=== PATIENT | female | born 1945 | race African-American/Black ===

== ENCOUNTER 2016-05-17 08:32 | Day surgery (SDC) | payer BC, MEDICARE ==
--- NOTE | 2016-05-10 13:14 | HISTORY AND PHYSICAL E ---
History and Physical NAME: VALERIO AUSTIN : 1945 AGE: [age]Y ADMITTED: 05/17/2016 ROOM: HISTORY: The patient is 71 and presented with a chief complaint of constipation. MEDICATIONS: 1. Lorazepam. 2. Ferrous sulfate. SOCIAL HISTORY: The patient is . She smokes 5-6 cigarettes a day and drinks rarely. PAST SURGICAL HISTORY: Colonoscopy and EGD in 2004. She did have right hip replacement. REVIEW OF SYSTEMS: CARDIAC: Hypertension, high cholesterol. RESPIRATORY: Smoker. HEENT: Eyeglasses. ENDOCRINE: Negative. GASTROINTESTINAL: Colon screening. Reflux, constipation, anemia. MUSCULOSKELETAL: Arthritis. FAMILY HISTORY: Father had CA prostate. Mom had cardiac disease. PHYSICAL EXAMINATION: GENERAL: Pleasant, alert, oriented. VITAL SIGNS: Blood pressure 120/80, pulse 80, respirations 18, temp 98. HEENT: Normal. NECK: Supple. CARDIOVASCULAR: Normal. LUNGS: Clear. ABDOMEN: Soft. NEUROLOGIC: Negative. CONCLUSION: Colon screening. PLAN: Colonoscopy scheduled for 05/17/2016. Admit 05/17/2016 for outpatient screening colonoscopy. DICTATING PHYSICIAN: ALEAH BEACH M.D. [id number] PHY#: [id number] ID: [id number] JOB#: [id number] ACCT: [id number] cc:MARIBELL MANRIQUEZ M.D., MAHMOUD M.D. >
[~2016-05-17 08:32] MED LIST: EPINEPHRINE INJ 1 MG/10 ML DISP.SYRIN ONE; FENTANYL CITRATE INJ/PF 100 MCG/2 ML AMPUL ONE; FLUMAZENIL INJ 0.5 MG/5 ML VIAL IV ONE; GLUCAGON,HUMAN RECOMB 1 MG INJ ONE; GLYCOPYRROLATE INJ 0.4 MG/2 ML VIAL ONE; LIDOCAINE 2% JELLY 30 ML TUBE ONE; MIDAZOLAM 2 MG/2 ML INJ ONE; NALOXONE HCL INJ/PF 0.4 MG/1 ML SDV ONE; ONDANSETRON HCL INJ/PF 4 MG/2 ML SDV ONE; PROMETHAZINE HCL INJ 25 MG/1 ML VIAL ONE
[2016-05-17 10:56] LABS: ABSOLUTE LYMPHOCYTES (AUTO) 1.1 10^3/uL (0.5-4.7); ABSOLUTE MONOCYTES (AUTO) 0.6 10^3/uL (0.1-1.4); ABSOLUTE NEUT (AUTO) 4.5 10^3/uL (1.7-8.2); BASOPHILS % (AUTO) 0.5 % (0-2); EOSINOPHILS % (AUTO) 0.4 % (0-6); HEMATOCRIT 33.2 % (36.0-47.0); HEMOGLOBIN 10.8 g/dL (12.0-15.5); HGB HCT DIFFERENCE -0.8; LYMPHOCYTES % (AUTO) 17.1 % (13-45); MEAN CORPUSCULAR HEMOGLOBIN 29.7 pg (27.0-33.4); MEAN CORPUSCULAR HGB CONC 32.6 g/dL (32.0-36.0); MEAN CORPUSCULAR VOLUME 91 fl (80-97); MONOCYTES % (AUTO) 10.3 % (3-13); RED BLOOD COUNT 3.64 10^6/uL (3.72-5.28); RED CELL DISTRIBUTION WIDTH 18.7 % (11.5-14.0); SEGMENTED NEUTROPHILS % (AUTO) 71.7 % (42-78); WHITE BLOOD COUNT 6.2 10^3/uL (4.0-10.5)
[2016-05-17 11:08] LABS: ALANINE AMINOTRANSFERASE 32 U/L (9-52); ALBUMIN 3.4 g/dL (3.5-5.0); ALKALINE PHOSPHATASE 59 U/L (38-126); ANION GAP 10 (5-19); ASPARTATE AMINO TRANSFERASE 23 U/L (14-36); BILIRUBIN,TOTAL 0.5 mg/dL (0.2-1.3); BLOOD UREA NITROGEN 6 mg/dL (7-20); CALCIUM 8.6 mg/dL (8.4-10.2); CARBON DIOXIDE 31 mmol/L (22-30); CHLORIDE 103 mmol/L (98-107); CREATININE RESULT 0.57 mg/dL (0.52-1.25); GLUCOSE 81 mg/dL (75-110); SODIUM 144.2 mmol/L (137-145); TOTAL PROTEIN 6.8 g/dL (6.3-8.2)
[2016-05-17 11:27] LABS: ANISOCYTOSIS 1+; POIKILOCYTOSIS 1+; SCHISTOCYTES 1+; TARGET CELLS SLIGHT
[2016-05-17 11:37] VITALS: BP 145/72
[2016-05-17 11:37] LABS: CARCINOEMBRYONIC ANTIGEN 9.3 ng/mL (<3.0)
[2016-05-17 11:39] LABS: POTASSIUM 2.8 mmol/L (3.6-5.0)
--- NOTE | 2016-05-17 15:26 | DISCHARGE SUMMARY E ---
Discharge Summary NAME: VALERIO AUSTIN : 1945 AGE: 71Y ADMITTED: 05/17/2016 DISCHARGED: 05/17/2016 PROCEDURE: Colonoscopy, biopsy. HISTORY OF PRESENT ILLNESS: A 71-year-old female presented with constipation. colon was okay. Today, colonoscopy shows redundant colon. Unable to intubate the cecum. DISCHARGE PLAN: We will obtain baseline CBC, CEA, acute abdominal series. Discharge the patient on full liquid. Consider barium enema in a few weeks. FINAL DIAGNOSIS: Sigmoid polyps. DICTATING PHYSICIAN: ALEAH BEACH M.D. [id number] PHY#: [id number] ID: [id number] JOB#: [id number] ACCT: [id number] cc:MARIBELL MANRIQUEZ M.D., MAHMOUD M.D. >
--- NOTE | 2016-05-17 15:28 | OPERATIVE REPORT E ---
Operative Report NAME: VALERIO AUSTIN : 1945 AGE: 71Y DATE OF SURGERY: 05/17/2016 ROOM: PREOPERATIVE DIAGNOSES: 1. Constipation. 2. Colon screening. Patient did have colonoscopy 10 years ago. PROCEDURE: Colon exam to mid ascending colon. I was unable to see the cecum. SURGEON: ALEAH BEACH M.D. TISSUE REMOVED OR ALTERED: Biopsy sigmoid polyp. ANESTHESIA: Versed 3, fentanyl 100. DESCRIPTION: Rectal exam shows normal. Sigmoid shows 3 benign-looking polyps 3 mm in size each, biopsy obtained. Descending colon normal. Splenic curve very high. Transverse colon normal. Large amount of stool. Ascending colon intubated, unable to reach the cecum. Cecum was seen. Mid ascending colon distally was normal. The scope was redundant and unable to intubate the cecum. I tried twice. The patient has a few bruises in her sigmoid descending. PLAN: Will obtain outpatient barium enema in a few weeks. Meanwhile, discharge the patient on full liquid. Obtain acute abdomen to rule out perforation and get baseline CBC. DICTATING PHYSICIAN: ALEAH BEACH M.D. [id number] PHY#: [id number] ID: [id number] JOB#: [id number] ACCT: [id number] cc:MARIBELL MANRIQUEZ M.D., MAHMOUD M.D. >
== END 2016-05-17 12:10 | disposition home or self-care (01) ==
LOC: END 08:32
PROVIDERS: ATTEND Specialist
PROC: 0DBN8ZX Excision of Sigmoid Colon, Via Natural or Artificial Opening Endoscopic, Diagnostic (ICD-10-PCS; principal; 2016-05-17 09:00)
DX: D12.5 Benign neoplasm of sigmoid colon (principal); Q43.8 Other specified congenital malformations of intestine; R97.0 Elevated carcinoembryonic antigen [CEA]; F17.210 Nicotine dependence, cigarettes, uncomplicated; I10 Essential (primary) hypertension; E78.00 Pure hypercholesterolemia, unspecified; M19.90 Unspecified osteoarthritis, unspecified site; K21.9 Gastro-esophageal reflux disease without esophagitis; D64.9 Anemia, unspecified; Z96.641 Presence of right artificial hip joint; Z79.899 Other long term (current) drug therapy
CPT/HCPCS: 45380; 36415; 82378; 85025; 80053; 88305 ×2; 74022; J2250; J3010; J0171; J1610; J2310; J2405; J2550; J3490

== ENCOUNTER 2016-07-10 12:38 | Observation (INO) | payer MEDICARE ==
--- NOTE | 2016-07-10 13:44 | ER Document Report ---
ED Medical Screen (RME) - General Chief Complaint: Low Blood Sugar Stated Complaint: BLOOD SUGAR PROBLEMS Notes: Patient was referred here from her primary care provider, Dr. Ortiz, for low blood sugar. Patient says that she had a couple of episodes over the weekend in which she became confused and disoriented. That happened on Sunday and then again on Sunday. She said she became lightheaded and dizzy and had blurry vision denies having a headache. She went to Dr. Ortiz's office this morning where her blood sugar was 20. She was given some glucose tablets and her sugar came up to 50. Patient has a history of alcohol abuse, but she says she stopped drinking over the past several months and has not had any alcohol for the last 2 weeks. No known liver disease. TRAVEL OUTSIDE OF THE [place] IN LAST 30 DAYS: No - Related Data Allergies/Adverse Reactions: No Known Allergies Allergy (Verified 06/13/16 09:31) Past Medical History - Past Medical History Cardiac Medical History: Reports: Hx Coronary Artery Disease - CHOLESTEROL, Hx Hypertension Denies: Hx Heart Attack Pulmonary Medical History: Reports: Hx Pneumonia - WALKING PNA Denies: Hx Asthma, Hx Bronchitis, Hx COPD Neurological Medical History: Denies: Hx Cerebrovascular Accident, Hx Seizures Renal/ Medical History: Reports: Hx Peritoneal Dialysis GI Medical History: Denies: Hx Hepatitis, Hx Hiatal Hernia, Hx Ulcer Musculoskeltal Medical History: Reports Hx Arthritis - GENERAL Infectious Medical History: Denies: Hx Hepatitis Past Surgical History: Denies: Hx Hysterectomy, Hx Mastectomy, Hx Open Heart Surgery, Hx Pacemaker - Immunizations Hx Diphtheria, Pertussis, Tetanus Vaccination: Yes Physical Exam - Vital signs Vitals: Temp Pulse Resp BP 97.5 F 91 16 122/67 07/10/16 13:14 07/10/16 13:14 07/10/16 13:14 07/10/16 13:14 Course - Vital Signs Vital signs: Temp Pulse Resp BP Pulse Ox 97.5 F 91 16 122/67 07/10/16 13:14 07/10/16 13:14 07/10/16 13:14 07/10/16 13:14
[2016-07-10 14:12] LABS: APPEARANCE,URINE CLEAR; BILIRUBIN,URINE NEGATIVE (NEGATIVE); GLUCOSE, URINE NEGATIVE (NEGATIVE); KETONES,URINE NEGATIVE (NEGATIVE); LEUKOCYTE ESTERASE,URINE NEGATIVE (NEGATIVE); NITRITE,URINE NEGATIVE (NEGATIVE); PROTEIN,URINE NEGATIVE (NEGATIVE); URINE SPECIFIC GRAVITY 1.004; UROBILINOGEN,URINE NEGATIVE mg/dL (<2.0)
[2016-07-10 14:16] LABS: ALANINE AMINOTRANSFERASE 25 U/L (9-52); ALBUMIN 4.1 g/dL (3.5-5.0); ALKALINE PHOSPHATASE 81 U/L (38-126); ANION GAP 13 (5-19); ASPARTATE AMINO TRANSFERASE 25 U/L (14-36); BILIRUBIN,DIRECT 0.1 mg/dL (0.0-0.4); BILIRUBIN,TOTAL 0.5 mg/dL (0.2-1.3); BLOOD UREA NITROGEN 11 mg/dL (7-20); CARBON DIOXIDE 26 mmol/L (22-30); CHLORIDE 104 mmol/L (98-107); CREATININE RESULT 0.54 mg/dL (0.52-1.25); GLUCOSE 121 mg/dL (75-110); SODIUM 143.2 mmol/L (137-145)
[2016-07-10 14:20] LABS: POTASSIUM 2.7 mmol/L (3.6-5.0)
[2016-07-10] MEDS ORDERED: POTASSIUM CHLORIDE 10 MEQ TABLET.SA PO ONE (14:21)
[2016-07-10 14:27] LABS: CREATINE KINASE MB 0.39 ng/mL (<4.55)
[2016-07-10 14:40] LABS: TROPONIN I < 0.012 ng/mL
--- NOTE | 2016-07-10 16:06 | ER Document Report ---
ED Blood Sugar Problem - General Mode of Arrival: Ambulatory Information source: Patient TRAVEL OUTSIDE OF THE [place] IN LAST 30 DAYS: No - HPI Patient complains to provider of: Hypoglycemia Associated symptoms: Other - see notes above <DARRIAN KELLER - Last Filed: 07/10/16 19:29> <MEKHI LLANOS - Last Filed: 07/10/16 19:50> - General Chief Complaint: Low Blood Sugar Stated Complaint: BLOOD SUGAR PROBLEMS Notes: 71 year old female with history of hypoglycemia and hypertension presents to the ED complaining of low blood sugar after being sent over from Dr. Ortiz's office this afternoon. Patient states that her blood sugar was in the 20's while at the office, but increased to 59 after taking 6 sugar tablets. Patient reports that she was dizzy, weak, and fell out this weekend and was seeing Dr. Ortiz for this complaint. Patient denies vomiting, diarrhea, or bleeding. Patient denies being on any blood thinning medication. Patient is taking vitamins and iron supplements. Patient reports that she was 120 lbs in May and was 111 lbs today while at the office. (DARRIAN KELLER) - Related Data Allergies/Adverse Reactions: No Known Allergies Allergy (Verified 06/13/16 09:31) Past Medical History - General Information source: Patient - Social History Smoking Status: Current Every Day Smoker Family History: Reviewed & Not Pertinent Patient has suicidal ideation: No Patient has homicidal ideation: No - Past Medical History Cardiac Medical History: Reports: Hx Coronary Artery Disease - CHOLESTEROL, Hx Hypertension Pulmonary Medical History: Reports: Hx Pneumonia - WALKING PNA Renal/ Medical History: Reports: Hx Peritoneal Dialysis Musculoskeltal Medical History: Reports Hx Arthritis - GENERAL - Immunizations Hx Diphtheria, Pertussis, Tetanus Vaccination: Yes <DARRIAN KELELR - Last Filed: 07/10/16 19:29> Review of Systems - Review of Systems Constitutional: See HPI, Weakness, Weight loss - 120 lbs in May; 111 lbs today. EENT: No symptoms reported Cardiovascular: See HPI, Dizziness, Other - hypoglycemia Respiratory: No symptoms reported Gastrointestinal: No symptoms reported. denies: Diarrhea, Vomiting, Blood in vomit, Rectal bleeding Genitourinary: No symptoms reported Female Genitourinary: No symptoms reported Musculoskeletal: No symptoms reported Skin: No symptoms reported Hematologic/Lymphatic: No symptoms reported Neurological/Psychological: No symptoms reported -: Yes All other systems reviewed and negative <KELLER,DARRIAN - Last Filed: 07/10/16 19:29> Physical Exam - General General appearance: Alert In distress: None - HEENT Head: Normocephalic, Atraumatic Eyes: Normal Extraocular movements intact: Yes Pupils: PERRL - Respiratory Respiratory status: No respiratory distress Breath sounds: Other - Coarse breath sounds throughout. No: Normal - Cardiovascular Rhythm: Regular Heart sounds: Normal auscultation - Abdominal Inspection: Normal Distension: No distension Tenderness: Nontender - Back Back: Normal - Extremities General upper extremity: Normal inspection, Normal ROM General lower extremity: Normal inspection, Normal ROM - Neurological Neuro grossly intact: Yes Cognition: Normal Orientation: AAOx4 [place] Coma Scale Eye Opening: Spontaneous Kriss Coma Scale Verbal: Oriented Kriss Coma Scale Motor: Obeys Commands Kriss Coma Scale Total: 15 Speech: Normal - Psychological Associated symptoms: Normal affect, Normal mood - Skin Skin Temperature: Warm Skin Moisture: Dry Skin Color: Normal <DARRIAN KELLER - Last Filed: 07/10/16 19:29> Course - Laboratory Result Diagrams: 07/10/16 18:40 07/10/16 18:40 <DARRIAN KELLER - Last Filed: 07/10/16 19:29> - Laboratory Result Diagrams: 07/10/16 18:40 07/10/16 18:40 <MEKHI LLANOS - Last Filed: 07/10/16 19:50> - Re-evaluation Re-evalutation: 07/10/16 18:30 Lab contacted. CBC had been canceled been reordered still not drawn. Nurse notified. We will repeat the potassium as well understanding it probably will be low. Symptoms do seem consistent with both low potassium and hypoglycemia. 07/10/16 19:49 Despite a very large meal the patient's blood sugar has not really increased significantly. Coupled with her severe hypokalemia with EKG changes, I spoke with Dr. Carcamo will admit the patient to his service under telemetry. IV potassium has been ordered. (MEKHI LLANOS) - Vital Signs Vital signs: Temp Pulse Resp BP Pulse Ox 97.5 F 91 18 115/77 07/10/16 13:14 07/10/16 13:14 07/10/16 19:02 07/10/16 19:02 - Laboratory Laboratory results interpreted by me: 07/10/16 07/10/16 07/10/16 13:35 18:40 18:40 Hgb 10.4 L Hct 32.6 L RDW 15.8 H Potassium 2.7 L* 2.6 L* Glucose 121 H Discharge <DARRIAN KELLER - Last Filed: 07/10/16 19:29> - Discharge Admitting Provider: Hospitalist - Dr. Carcamo Unit Admitted: Telemetry <MEKHI LLANOS - Last Filed: 07/10/16 19:50> - Discharge Clinical Impression: Hypoglycemia, Hypokalemia Condition: Fair Disposition: ADMITTED INPATIENT Instructions: Hypoglycemia ([facility]), Hypoglycemia Diet ([facility]), Hypokalemia ([facility]) Additional Instructions: Ensure that you are eating a well-balanced meal including potassium. Return for worsening or concern. Call tomorrow to arrange follow-up Prescriptions: Potassium Chloride [K-Tab ER] 20 meq PO DAILY #10 tablet.er Referrals: JAMES ORTIZ MD [Primary Care Provider] - Follow up in 3-5 days Scribe Attestation: 07/10/16 18:34 I personally performed the services described in the documentation, reviewed and edited the documentation which was dictated to the scribe in my presence, and it accurately records my words and actions. (MEKHI LLANOS) Scribe Documentation - Scribe Written by Ankite:: Bree Isaac, 07/10/2016 1617 acting as scribe for :: Hollie <DARRIAN KELLER - Last Filed: 07/10/16 19:29>
[2016-07-10] MEDS ORDERED: POTASSIUM CHLORIDE 20 MEQ/15 ML UDCUP PO ONE (18:27)
[2016-07-10 18:53] LABS: ABSOLUTE MONOCYTES (AUTO) 0.6 10^3/uL (0.1-1.4); ABSOLUTE NEUT (AUTO) 5.2 10^3/uL (1.7-8.2); BASOPHILS % (AUTO) 0.3 % (0-2); EOSINOPHILS % (AUTO) 0.4 % (0-6); HEMATOCRIT 32.6 % (36.0-47.0); HEMOGLOBIN 10.4 g/dL (12.0-15.5); HGB HCT DIFFERENCE -1.4; LYMPHOCYTES % (AUTO) 25.1 % (13-45); MEAN CORPUSCULAR HEMOGLOBIN 27.6 pg (27.0-33.4); MONOCYTES % (AUTO) 7.8 % (3-13); RED BLOOD COUNT 3.78 10^6/uL (3.72-5.28); RED CELL DISTRIBUTION WIDTH 15.8 % (11.5-14.0); SEGMENTED NEUTROPHILS % (AUTO) 66.4 % (42-78); WHITE BLOOD COUNT 7.8 10^3/uL (4.0-10.5)
[2016-07-10 19:02] LABS: MEAN CORPUSCULAR VOLUME 86 fl (80-97)
[2016-07-10] MEDS ORDERED: POTASSI CL 20 MEQ/50 ML RIDER 50 ML IV SCH (19:35)
[2016-07-10 19:57] LABS: ADD ON TESTING BLD IN LAB ACKNOWLEDGE
[2016-07-10 20:08] LABS: ALCOHOL < 10 mg/dL (NONE DETECTED)
[2016-07-10 20:18] LABS: URINE BARBITURATES SCREEN NEGATIVE; URINE METHADONE SCREEN NEGATIVE; URINE OPIATES LOW NEGATIVE; URINE PHENCYCLIDINE SCREEN NEGATIVE
[2016-07-10] MEDS ORDERED: THIAMINE HCL 100 MG TABLET PO ONE (21:00)
[2016-07-10] MEDS ORDERED: ACETAMINOPHEN 325 MG TABLET PO PRN (21:04)
[2016-07-10] MEDS ORDERED: DEXTROSE 40% GEL 15 GM TUBE PO PRN ×2 (21:05)
[2016-07-10] MEDS ORDERED: DEXTROSE 50%-WATER 25 GM/50 ML DISP.SYRIN IV PRN ×2 (21:05)
[2016-07-10] MEDS ORDERED: GLUCAGON,HUMAN RECOMB 1 MG INJ IM PRN (21:05)
[2016-07-10] MEDS ORDERED: PROMETHAZINE HCL INJ 25 MG/1 ML VIAL IV PRN (21:11)
[2016-07-10] MEDS ORDERED: NICOTINE 14 MG/24 HR PATCH.TD24 TD PRN (21:25)
--- NOTE | 2016-07-10 21:29 | PDOC H&P ---
History of Present Illness Admission Date/PCP: 07/10/16 19:59 JAMES MANRIQUEZ MD Patient complains of: weak, low bld sugar History of Present Illness: VALERIO AUSTIN is a 71 year old female with underlying hypertension, hyperlipidemia, chronic tobacco dependency, chronic alcohol use, although by her account none for the past 2 weeks, chronic mild anxiety, and chronic anemia, who presents to the emergency room for evaluation of above complaints. Patient has been discussed with emergency room physician who evaluated the patient. Was seen at her primary care provider's office today for evaluation of several day history of generalized weakness. Had an episode of what she describes as her legs "giving way" at the sink over the weekend, although no syncope. No head trauma. Blood sugar in the 20s in her primary care provider's office. Increased to 59 after taking 6 sugar tablets. Despite eating a full meal, blood sugar here in the emergency room was only 90. Patient states she has a long history of intermittent problems with hypoglycemia. Has never been diagnosed with diabetes mellitus. She denies nausea vomiting, fever or chills, diarrhea or dysuria, chest or abdominal pain Had negative upper and lower endoscopy by Dr. Winslow in May of this year. Laboratory results are listed in [employer] [employer] and are reviewed. X-ray summary results are listed below, with full report(s) reviewed. . EKG reviewed. No old EKG available for comparison. Social history/personal habits: . One daughter. Retired. 8 cigarettes a day. No alcohol for the past 2 weeks. States she stopped drinking "hard liquor" in April, drinking only beer since then. Initially denied any illicit drug use, but when I told her her drug screen was positive for marijuana , she did admit to using this substance. Allergies/adverse reactions NKDA. Home medications bottle review performed with patient at bedside. Home medications initially autopopulated into [employer] may not accurately reflect patient's true medications, dosages, and/or frequencies. technical operations vice president to reconcile medications. REVIEW OF SYSTEMS: Constitutional: See History and Present Illness. Eyes: Wears glasses. ENT: No swallowing problems or complaints. No hearing problems or complaints. Pulmonary: No current complaints. Cardiovascular: No current complaints, including chest pain. Gastrointestinal: No current complaints, including nausea or vomiting. Skin: No current complaints, including rashes. Hematologic: No unusual easy bruising or bleeding. Neurologic: No current complaints, including numbness or tingling. Musculoskeletal: Joint pain from arthritis. Psychiatric: Mild Anxiety Endocrine: See History and Present Illness. Genitourinary: No current complaints, including dysuria. PHYSICAL EXAMINATION: 5 feet 3 inches tall. 50.8 kg. BMI 19.8 kg/m. Blood pressure 133/71. Pulse 82 and regular. 98% saturation on room air. Respirations are 16 and unlabored. Temperature 97.5. Thin otherwise well-developed -[place] female who appears a number of views younger than her stated age. Pleasant awake alert and cooperative. No obvious distress other than somewhat anxious. Skin is warm and dry. No grossly obvious evidence of rash in areas of skin examined. No subcutaneous nodules palpated. ENT: Hearing grossly normal to normal conversation. Tongue midline on protrusion pink and slightly moist. Eyes: No scleral icterus. Pupils equal and reactive to light at 4 mm. [place] conjunctivae. Neck is supple and nontender to gentle active range of motion and palpation. Midline trachea. No palpable thyroid nodule mass enlargement or tenderness. Lymphatic: No palpable cervical or clavicular nodes. Neck and lymphatic exams limited by patient body habitus. Psychiatric: Reasonable insight into acute and chronic medical issues. Oriented to time location and why here. Lungs: Auscultation reveals clear and equal breath sounds bilaterally. No use of accessory respiratory muscles. Cardiovascular: Heart regular rate and rhythm, without gallop murmur or rub. No carotid or abdominal aortic bruits. No ankle or pedal edema. Faintly palpable dorsalis pedis pulses. Abdomen: soft, slightly distended nontender with positive bowel sounds. Unable to adequately evaluate abdomen for masses or organomegaly due to distention. Extremities: Feet are warm and dry. No calf tenderness to compression. No grossly obvious visual evidence of calf swelling. Gentle manipulation of lower extremities fails to reveal any obvious evidence of injury or instability to knees hips or ankles. Neurologic: Moves all 4 extremities grossly normally. Patellar reflexes absent. Absent Babinski. Light touch is intact at feet. Dorsiflexion and plantarflexion of feet 5 / 5 and symmetric. Past Medical History Cardiac Medical History: Reports: Coronary Artery Disease - Questionable OR in past, per Dr. Toro, according to patient., Myocardial Infarction, Hyperlipidema, Hypertension Denies: Congestive Heart Failure, DVT, Pulmonary Embolism Pulmonary Medical History: Reports: Pneumonia - WALKING PNA Denies: Asthma, Bronchitis, Chronic Obstructive Pulmonary Disease (COPD) EENT Medical History: Reports: Eyes - Glasses Neurological Medical History: Denies: Hemorrhagic CVA, Ischemic CVA, Seizures Endocrine Medical History: Reports: Other - Chronic intermittent problems with low blood sugar, according to patient. Denies: Diabetes Mellitus Type 1, Diabetes Mellitus Type 2, Hyperthyroidism, Hypothyroidism Renal/ Medical History: Reports: None GI Medical History: Reports: Gastroesophageal Reflux Disease Denies: Cirrhosis, Hepatitis, Peptic Ulcer Disease Musculoskeltal Medical History: Reports: Arthritis - GENERAL Skin Medical History: Reports: None Psychiatric Medical History: Reports: Alcohol Dependency, General Anxiety Disorder, Tobacco Dependency Denies: Depression, Substance Abuse Hematology: Denies: Anemia, Sickle Cell Disease Infectious Medical History: Denies: Hepatitis B, Hepatitis C Past Surgical History Past Surgical History: Reports: Orthopedic Surgery - rthr Denies: Amputation, Hysterectomy, Mastectomy, Pacemaker Social History Information Source: Patient, Emergency Med Personnel, [facility] Records Lives with: Spouse/Significant other Smoking Status: Current Every Day Smoker Frequency of Alcohol Use: Social Drugs: Marijuana - Advance Directive Resuscitation Status: Full Code Surrogate healthcare decision maker:: Family History Family History: Reviewed & Not Pertinent Parental Family History Reviewed: Yes Children Family History Reviewed: Yes Sibling(s) Family History Reviewed.: Yes Medication/Allergy Home Medications: RX: Amlodipine/Atorvastatin [Amlodipine-Atorvast 10-40 mg] 1 each PO DAILY 07/10 RX: Ferrous Sulfate 140 mg PO DAILY 07/10/16 RX: Lorazepam [Ativan 1 mg Tablet] 0.5 mg PO QHS 07/10/16 RX: Raloxifene HCl [Evista 60 mg Tablet] 60 mg PO DAILY 07/10/16 Allergies/Adverse Reactions: No Known Allergies Allergy (Verified 06/13/16 09:31) Physical Exam Vital Signs: Temp Pulse Resp BP Pulse Ox 97.5 F 91 18 115/77 07/10/16 13:14 07/10/16 13:14 07/10/16 19:02 07/10/16 19:02 Results Impressions: Head CT 07/10/16 13:45 IMPRESSION: 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 No definite CT evidence of acute findings. Assessment & Plan - Diagnosis (1) Hypoglycemia Is this a current diagnosis for this admission?: YesPlan: Uncertain cause. Suspect it may be at least partially due to somewhat poor eating habits. Patient typically eats at the most twice a day. states she's been encouraged in the past to eat 3 good meals a day. Accu-Cheks before meals and at bedtime, with hypoglycemia protocol. I have strongly encouraged patient not to get out of bed without notifying staff , to avoid a fall with injury. Knee high SCDs for DVT prophylaxis, along with subcutaneous heparin. Impression and plans were discussed with patient, who concurs. Time spent in evaluation and management of patient: 64 minutes. (2) Hypokalemia Is this a current diagnosis for this admission?: YesPlan: Potassium replacement with follow-up chemistry. (3) Marijuana use Is this a current diagnosis for this admission?: Yes (4) General weakness Is this a current diagnosis for this admission?: YesPlan: Physical therapy consult. Orthostatic vital signs every 4 hours while awake. (5) Alcohol use Is this a current diagnosis for this admission?: YesPlan: Daily multivitamins, thiamine, and folic acid. Observe closely for alcohol withdrawal symptoms. (6) Anemia Qualifiers: Anemia type: unspecified type Qualified Code(s): D64.9 - Anemia, unspecified Is this a current diagnosis for this admission?: YesPlan: Chronic problem for patient. No need for transfusion at present time. Negative upper and lower endoscopy May of this year. (7) HLD (hyperlipidemia) Qualifiers: Hyperlipidemia type: unspecified Qualified Code(s): E78.5 - Hyperlipidemia, unspecified Is this a current diagnosis for this admission?: YesPlan: Resume home medications as appropriate once these have been determined and reviewed. (8) HTN (hypertension) Qualifiers: Hypertension type: essential hypertension Qualified Code(s): I10 - Essential (primary) hypertension Is this a current diagnosis for this admission?: YesPlan: Resume home medications as appropriate once these have been determined and reviewed. (9) Tobacco dependency Is this a current diagnosis for this admission?: YesPlan: When necessary nicotine patch. - Inpatient Certification Based on my medical assessment, after consideration of the patient's comorbidities, presenting symptoms, or acuity I expect that the services needed warrant INPATIENT care.: Yes I certify that my determination is in accordance with my understanding of Medicare's requirements for reasonable and necessary INPATIENT services [42 CFR 412.3e].: Yes Medical Necessity: Need Close Monitoring Due to Risk of Patient Decompensation, Need For Continuous Telemetry Monitoring, Risk of Complication if Not Cared For in Hospital Post Hospital Care: D/C or Transfer Summary
[2016-07-11] MEDS: HEPARIN SOD (PORCINE) 5,000 UNIT/ML 1 ML SYRINGE SUBCUT SCH ×3 (01:41→22:12)
[2016-07-11] MEDS ORDERED: POTASSIUM CHLORIDE 20 MEQ/15 ML UDCUP PO ONE ×2 (03:15→05:00)
[2016-07-11 07:22] LABS: ANION GAP 12 (5-19); BLOOD UREA NITROGEN 10 mg/dL (7-20); CALCIUM 9.2 mg/dL (8.4-10.2); CARBON DIOXIDE 27 mmol/L (22-30); CHLORIDE 106 mmol/L (98-107); CREATININE RESULT 0.54 mg/dL (0.52-1.25); GLUCOSE 91 mg/dL (75-110); POTASSIUM 3.5 mmol/L (3.6-5.0); SODIUM 145.3 mmol/L (137-145)
--- NOTE | 2016-07-11 08:16 | EKG REPORT ---
SEVERITY:- ABNORMAL ECG - SINUS RHYTHM PROBABLE LEFT ATRIAL ABNORMALITY INFERIOR INFARCT, AGE INDETERMINATE BORDERLINE R WAVE PROGRESSION, ANTERIOR LEADS : Confirmed by: Ezra Toro MD 11-Jul-2016 08:15:09
[2016-07-11] MEDS ORDERED: (PENDING PHARMACY ID) (Ferrous Sulfate [Ferrous Sulfate] 140 MG) PO SCH (10:00)
[2016-07-11] MEDS: DOCUSATE SODIUM 100 MG CAPSULE PO SCH ×2 (10:19→17:51)
[2016-07-11] MEDS: MULTIVITAMIN TABLET PO SCH (10:19)
[2016-07-11] MEDS: RALOXIFENE HCL 60 MG TABLET PO SCH (10:20)
[2016-07-11] MEDS: THIAMINE HCL 100 MG TABLET PO SCH (10:20)
[2016-07-11] MEDS: FOLIC ACID 1 MG TABLET PO SCH (10:20)
[2016-07-11] MEDS: AMLODIPINE BESYLATE 10 MG TABLET PO SCH (10:20)
[2016-07-11] MEDS: FERROUS SULFATE 325 MG TABLET PO SCH (10:20)
[2016-07-11] MEDS ORDERED: DIPHENHYDRAMINE HCL 50 MG/ML VIAL IV PRN (14:34)
[2016-07-11 15:41] LABS: ANION GAP 13 (5-19); BLOOD UREA NITROGEN 13 mg/dL (7-20); CALCIUM 9.3 mg/dL (8.4-10.2); CARBON DIOXIDE 29 mmol/L (22-30); CHLORIDE 103 mmol/L (98-107); CREATININE RESULT 0.74 mg/dL (0.52-1.25); GLUCOSE 111 mg/dL (75-110); SODIUM 144.7 mmol/L (137-145)
--- NOTE | 2016-07-11 16:45 | PDOC PROGRESS REPORT ---
Subjective Progress Note for:: 07/11/16 Subjective:: Patient seen on morning rounds. She is resting comfortably in bed. She denies any complaints the present time. She denies any shortness of breath, cough, or dyspnea. She denies any nausea, vomiting or diarrhea. She denies any arthralgias or myalgias. She denies not eating at home she states she's had low blood sugar before. Physical Exam Vital Signs: Temp Pulse Resp BP Pulse Ox 98.6 F 77 18 122/66 100 07/11/16 14:44 07/11/16 15:12 07/11/16 14:44 07/11/16 14:44 07/11/16 14:44 Intake & Output 07/10/16 07/11/16 07/12/16 06:59 06:59 06:59 Intake Total 302 Balance 302 Weight 52.2 kg General appearance: PRESENT: no acute distress, well-developed, well-nourished Head exam: PRESENT: atraumatic, normocephalic Eye exam: PRESENT: conjunctiva pink, EOMI, PERRLA. ABSENT: scleral icterus Ear exam: PRESENT: normal external ear exam Mouth exam: PRESENT: moist, tongue midline Neck exam: ABSENT: carotid bruit, JVD, lymphadenopathy, thyromegaly Respiratory exam: PRESENT: clear to auscultation tiago. ABSENT: rales, rhonchi, wheezes Cardiovascular exam: PRESENT: RRR. ABSENT: diastolic murmur, rubs, systolic murmur Pulses: PRESENT: normal dorsalis pedis pul GI/Abdominal exam: PRESENT: normal bowel sounds, soft. ABSENT: distended, guarding, mass, organolmegaly, rebound, tenderness Rectal exam: PRESENT: deferred Extremities exam: PRESENT: full ROM. ABSENT: calf tenderness, clubbing, pedal edema Neurological exam: PRESENT: alert, awake, oriented to person, oriented to place , oriented to time, oriented to situation, CN II-XII grossly intact. ABSENT: motor sensory deficit Psychiatric exam: PRESENT: appropriate affect, normal mood. ABSENT: homicidal ideation, suicidal ideation Skin exam: PRESENT: dry, intact, warm. 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 No definite CT evidence of acute findings. Assessment & Plan - Diagnosis (1) Hypoglycemia Is this a current diagnosis for this admission?: YesPlan: Patient is in a with symptomatic hypoglycemia. She was found to have blood sugar in the 40s. She's been known to abuse alcohol and marijuana past and not eat appropriately. Accu-Cheks did not correlate with her venous blood draws as per is accuracy of glucose. Patient was encouraged to eat several small frequent meals daily. (2) General weakness Is this a current diagnosis for this admission?: YesPlan: Patient was found to be hypokalemic and Low magnesium levels is will be repleted. Most likely secondary to her copies. (3) Hypokalemia Is this a current diagnosis for this admission?: YesPlan: Replete as needed (4) Alcohol use Is this a current diagnosis for this admission?: YesPlan: Patient's given thiamine when necessary Ativan. She states she's had no prominent drinking in the past. (5) HTN (hypertension) Qualifiers: Hypertension type: essential hypertension Qualified Code(s): I10 - Essential (primary) hypertension Is this a current diagnosis for this admission?: YesPlan: Continue current antihypertensives she is normotensive at the present time (6) HLD (hyperlipidemia) Qualifiers: Hyperlipidemia type: unspecified Qualified Code(s): E78.5 - Hyperlipidemia, unspecified Is this a current diagnosis for this admission?: YesPlan: Continue statin (7) Marijuana use Is this a current diagnosis for this admission?: YesPlan: Counseled (8) Anemia Qualifiers: Anemia type: unspecified type Qualified Code(s): D64.9 - Anemia, unspecified Is this a current diagnosis for this admission?: YesPlan: Continue to monitor - Time Time Spent with patient: 25-34 minutes Critical Time spent with patient: 15-24 minutes Smoking Cessation Education: 3 to 10 minutes Medications reviewed and adjusted accordingly: Yes
[2016-07-11] MEDS ORDERED: POTASSIUM CHLORIDE 10 MEQ TABLET.SA PO ONE ×2 (17:30→21:30)
[2016-07-11] MEDS ORDERED: ATORVASTATIN CALCIUM 40 MG TABLET PO SCH (22:00)
[2016-07-11] MEDS ORDERED: LORAZEPAM 1 MG TABLET PO SCH (22:00)
[2016-07-11] MEDS ORDERED: LORAZEPAM 0.5 MG TABLET PO SCH (22:00)
[2016-07-12 05:26] LABS: ANION GAP 12 (5-19); BLOOD UREA NITROGEN 18 mg/dL (7-20); CALCIUM 8.9 mg/dL (8.4-10.2); CARBON DIOXIDE 24 mmol/L (22-30); CHLORIDE 107 mmol/L (98-107); CREATININE RESULT 0.58 mg/dL (0.52-1.25); GLUCOSE 96 mg/dL (75-110); POTASSIUM 3.8 mmol/L (3.6-5.0); SODIUM 143.4 mmol/L (137-145)
[2016-07-12] MEDS: HEPARIN SOD (PORCINE) 5,000 UNIT/ML 1 ML SYRINGE SUBCUT SCH (09:57)
[2016-07-12] MEDS: AMLODIPINE BESYLATE 10 MG TABLET PO SCH (09:59)
[2016-07-12] MEDS: THIAMINE HCL 100 MG TABLET PO SCH (10:00)
[2016-07-12] MEDS: RALOXIFENE HCL 60 MG TABLET PO SCH (10:00)
[2016-07-12] MEDS: MULTIVITAMIN TABLET PO SCH (10:00)
[2016-07-12] MEDS: FOLIC ACID 1 MG TABLET PO SCH (10:00)
[2016-07-12] MEDS: DOCUSATE SODIUM 100 MG CAPSULE PO SCH (10:00)
[2016-07-12] MEDS: FERROUS SULFATE 325 MG TABLET PO SCH (10:00)
[2016-07-12 12:04] VITALS: BP 130/69
--- NOTE | 2016-07-13 17:10 | PDOC DISCHARGE SUMMARY ---
General - Admit/Disc Date/PCP Admission Date/Primary Care Provider: 07/10/16 21:04 JAMES MANRIQUEZ MD Discharge Date: 07/12/16 - Discharge Diagnosis (1) Hypoglycemia Is this a current diagnosis for this admission?: YesSummary: Poor by mouth intake (2) Marijuana use Is this a current diagnosis for this admission?: Yes (3) Alcohol use Is this a current diagnosis for this admission?: Yes (4) HLD (hyperlipidemia) Is this a current diagnosis for this admission?: Yes (5) HTN (hypertension) Is this a current diagnosis for this admission?: Yes (6) Tobacco dependency Is this a current diagnosis for this admission?: Yes - Additional Information Resuscitation Status: Full Code Discharge Diet: Regular Discharge Activity: Activity As Tolerated Home Medications: Amlodipine/Atorvastatin [Amlodipine-Atorvast 10-40 mg] 1 each PO DAILY 07/10/16 Ferrous Sulfate 140 mg PO DAILY 07/10/16 Lorazepam [Ativan 1 mg Tablet] 0.5 mg PO QHS 07/10/16 Raloxifene HCl [Evista 60 mg Tablet] 60 mg PO DAILY 07/10/16 History of Present Illness Patient complains of: Weakness History of Present Illness: VALERIO AUSTIN is a 71 year old [place] female with underlying hypertension , hyperlipidemia, chronic tobacco dependency, chronic alcohol use, although by her account none for the past 2 weeks, chronic mild anxiety, and chronic anemia , who presents to the emergency room for evaluation of weakness. Was seen at her primary care provider's office today for evaluation of several day history of generalized weakness. Had what she describes as her legs giving way at the sink over the weekend, although no syncope. No head trauma. Blood sugar in the 20s and her primary care provider's office. Increase to 59 after taking 6 sugar tablets. Despite eating a full meal, blood sugar here in the emergency room was only 90. Patient states she has a long history of intermittent problems with hypoglycemia. Has never been diagnosed with diabetes mellitus. She denies nausea vomiting, fever or chills, diarrhea or dysuria, chest or abdominal pain. Had negative upper and lower endoscopy by Dr. Winslow in May of this year. Hospital Course Hospital Course: The patient was admitted to continuous telemetry unit. The patient was hydrated. The patient was given dextrose. The patient's blood sugars rapidly improved. During the patient's stay the patient admitted to having limited oral intake and alcohol use. The patient stated that she does not eat meals regularly due to these habits. The patient appeared to have hypoglycemia associated with limited oral intake. The patient symptoms have completely resolved. The patient is tolerating by mouth and is ready for discharge. Physical Exam Vital Signs: Temp Pulse Resp BP Pulse Ox 98.3 F 86 18 130/69 H 96 07/12/16 12:00 07/12/16 12:00 07/12/16 12:00 07/12/16 12:00 07/12/16 12:00 Intake & Output 07/11/16 07/12/16 07/13/16 23:59 23:59 23:59 Intake Total 662 702 Balance 662 702 Weight 52.2 kg 58.9 kg General appearance: PRESENT: no acute distress, thin, well-developed Head exam: PRESENT: atraumatic, normocephalic Eye exam: PRESENT: conjunctiva pink, EOMI, PERRLA. ABSENT: scleral icterus Ear exam: PRESENT: normal external ear exam Mouth exam: PRESENT: moist, tongue midline Neck exam: ABSENT: carotid bruit, JVD, lymphadenopathy, thyromegaly Respiratory exam: PRESENT: clear to auscultation tiago. ABSENT: rales, rhonchi, wheezes Cardiovascular exam: PRESENT: RRR. ABSENT: diastolic murmur, rubs, systolic murmur Pulses: PRESENT: normal dorsalis pedis pul Vascular exam: PRESENT: normal capillary refill GI/Abdominal exam: PRESENT: normal bowel sounds, soft. ABSENT: distended, guarding, mass, organolmegaly, rebound, tenderness Rectal exam: PRESENT: deferred Extremities exam: PRESENT: full ROM. ABSENT: calf tenderness, clubbing, pedal edema Neurological exam: PRESENT: alert, awake, oriented to person, oriented to place , oriented to time, oriented to situation, CN II-XII grossly intact. ABSENT: motor sensory deficit Psychiatric exam: PRESENT: appropriate affect, normal mood. ABSENT: homicidal ideation, suicidal ideation Skin exam: PRESENT: dry, intact, warm. 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 No definite CT evidence of acute findings. Qualifiers PATEINT BEING DISCHARGED WITH ANY OF THE FOLLOWING DIAGNOSIS?: No Plan Time Spent: Less than 30 Minutes
== END 2016-07-12 13:45 | disposition home or self-care (01) ==
LOC: ER 12:38 → EH 19:59 → UNDOADMIN 19:59 → EH 21:04 → INTOOBSV 21:04 → 4S 07-11 03:40
PROVIDERS: ADMIT Family Medicine; ATTEND Family Medicine
DX: E16.2 Hypoglycemia, unspecified (principal); F12.90 Cannabis use, unspecified, uncomplicated; Z72.89 Other problems related to lifestyle; E78.5 Hyperlipidemia, unspecified; I10 Essential (primary) hypertension; F17.200 Nicotine dependence, unspecified, uncomplicated; F41.8 Other specified anxiety disorders; D64.89 Other specified anemias; M13.88 Other specified arthritis, other site; R53.1 Weakness; E87.6 Hypokalemia; I25.10 Atherosclerotic heart disease of native coronary artery without angina pectoris; Z96.641 Presence of right artificial hip joint; Z79.899 Other long term (current) drug therapy
CPT/HCPCS: 93005; 99285; 36415 ×3; 82553; 82962 ×2; 80307 ×2; 82947; 83735; 84132 ×2; 84443; 85025; 80048 ×2; 80053; 81001; 84484; 70450; 93010; 97162; G0378 ×2; A9270 ×17; J1644 ×2; J3490 ×2; J3480; G8978; G8979; G8980

== ENCOUNTER → 2016-07-20 | Outpatient (CLI) | payer MEDICARE | LOC: RAD 12:41 | PROVIDERS: ATTEND Family Medicine | DX: E16.2 Hypoglycemia, unspecified (principal); R63.4 Abnormal weight loss | CPT/HCPCS: 74177 ==

== ENCOUNTER → 2017-01-02 | Outpatient (CLI) | payer MEDICARE ==
--- NOTE | 2017-01-02 14:54 | RADIOLOGY REPORT (SQ) ---
EXAM DESCRIPTION: U/S NON-OB PELVIS W/O DOP COMPLETED DATE/TIME: 01/02/2017 11:19 am REASON FOR STUDY: OTHER SPECIFIED NONINFLAMMATORY DISORDERS OF UTERUS (N85.8) N85.8 OTHER SPECIFIED NONINFLAMMATORY DISORDERS OF UTERUS COMPARISON: CT abdomen pelvis 07/20/2016 TECHNIQUE: Dynamic and static grayscale images acquired of the pelvis via transabdominal approach an d recorded on PACS. Additional selected color Doppler and spectral images recorded. LIMITATIONS: Midline pelvic bowel gas FINDINGS: UTERUS: Contour normal. No mass. Right ovary 4.9 x 3 x 2.4 cm in size. ENDOMETRIAL STRIPE: No focal or generalized thickening. No masses. Endometrium less than 4 mm in thi ckness. CERVIX: No nabothian cysts. RIGHT OVARY: No abnormal masses. Right ovary 4.2 x 3 x 2.7 cm in size. Right ovary 3 x 2.3 cm simple cyst. RIGHT OVARY DOPPLER: Normal arterial vascular flow without evidence for torsion. LEFT OVARY: Not visualized due to pelvic bowel gas LEFT OVARY DOPPLER: Left ovary not visualized. FREE FLUID: None noted. OTHER: No other significant finding. IMPRESSION: Left ovary not visualized. 3 cm simple cyst right ovary correlates with findings on CT. TECHNICAL DOCUMENTATION: JOB ID: [id number] [employer]- All Rights Reserved
== END ==
LOC: RAD 10:21
PROVIDERS: ATTEND Family Medicine
DX: N85.8 Other specified noninflammatory disorders of uterus (principal); N83.291 Other ovarian cyst, right side
CPT/HCPCS: 76856

== ENCOUNTER → 2019-01-28 | Outpatient (CLI) | payer MEDICARE ==
--- NOTE | 2019-01-28 17:57 | NEURO WORKBENCH EEG REPORT ---
EEG Report Patient: Brittany Herman ID: [id number] Referring Doctor: Antelmo Linares Date: 01/28/2019 Reason for study: Evaluate Epileptiform activity Medications: Vitamin, Aspirin, Potassium, Amlodipine-Atorvast, Irbesartan, Raloxifene History: This is a 73 year old female with a history of cerebrovascular disease, degenerative disease of the nervous system unspecified, ataxia, syncope, HTN, DM. This EEG was requested for evaluation of epileptiform activity. EEG Interpretation: This EEG was recorded during wakefulness and minimal stage I sleep. The awake EEG is characterized by a background without a well developed posterior dominant rhythm (PDR). The background EEG consists of predominantly 7 Hz theta with intermittent generalized 5-7 Hz theta and 8 Hz alpha activity. The EEG is symmetric in amplitudes and frequencies. There was prominent EMG artifact obscuring the recording; the bilateral temporal regions were obscured by EMG artifact throughout the recording. Photic stimulation resulted in no significant photic driving, and there was no epileptiform activity elicited with photic stimulation. Minimal stage I sleep was achieved and characterized by slow rolling eye movements and minimal further slowing of the background rhythm. Stage II sleep was not achieved. There were no epileptiform abnormalities (no sharp waves and no spikes). There were no seizures. The EKG typically showed a regular rhythm with typically 70-80 beats per minute, but there were periods of irregularity with occasional ectopic beats. EEG Impression: This EEG is mildly abnormal due to mildly slow background activity of predominantly theta activity; this is a non-specific finding suggesting mild diffuse cerebral dysfunction. There was no epileptiform activity or seizures. A single normal routine EEG does not rule out the possibility of epilepsy. If there is high clinical suspicion for epilepsy, then additional EEG evaluation should be considered with a sleep-deprived EEG or more prolonged EEG monitoring. The EKG showed some irregularity with ectopic beats. Further cardiac evaluation is recommended. INTERPRETING NEUROLOGIST: Bird Lala MD Board certified by the [place] [employer] in Neurology, Clinical Neurophysiology, and Sleep Medicine [facility]
== END ==
LOC: NEURO 12:23
PROVIDERS: ATTEND Pediatrics
DX: R55 Syncope and collapse (principal); I10 Essential (primary) hypertension; E11.9 Type 2 diabetes mellitus without complications; R27.0 Ataxia, unspecified; G31.9 Degenerative disease of nervous system, unspecified; Z86.73 Personal history of transient ischemic attack (TIA), and cerebral infarction without residual deficits
CPT/HCPCS: 95819

== ENCOUNTER 2019-03-30 16:40 | Inpatient (IN) | payer MEDICARE ==
--- NOTE | 2019-03-30 16:49 | ER Document Report ---
ED Medical Screen (RME) - General Chief Complaint: Headache Stated Complaint: HEADACHE,BLURRED VISION Time Seen by Provider: 03/30/19 16:45 Primary Care Provider: JAMES MANRIQUEZ MD [Primary Care Provider] - Follow up as needed Mode of Arrival: Wheelchair Information source: Patient, Relative Notes: 74-year-old female presents to the emergency department with complaints of a headache that started this morning. She also complains of unable to see. Her reports she has been confused. She is scheduled for cardiac surgery April 08. Denies trauma. Denies history of stroke. I have greeted and performed a rapid initial assessment of this patient. A comprehensive ED assessment and evaluation of the patient, analysis of test results and completion of the medical decision making process will be conducted by additional ED providers. TRAVEL OUTSIDE OF THE [place] IN LAST 30 DAYS: No - Related Data Allergies/Adverse Reactions: No Known Allergies Allergy (Verified 06/13/16 09:31) Past Medical History - Past Medical History Cardiac Medical History: Reports: Hx Coronary Artery Disease - Questionable CA in past, per Dr. Toro, according to patient., Hx Heart Attack, Hx Hypercholesterolemia, Hx Hypertension Denies: Hx Congestive Heart Failure, Hx DVT, Hx Pulmonary Embolism Pulmonary Medical History: Reports: Hx Pneumonia - WALKING PNA Denies: Hx Asthma, Hx Bronchitis, Hx COPD Neurological Medical History: Denies: Hx Cerebrovascular Accident, Hx Seizures Endocrine Medical History: Denies: Hx Diabetes Mellitus Type 1, Hx Diabetes Mellitus Type 2, Hx Hyperthyroidism, Hx Hypothyroidism Renal/ Medical History: Reports: Hx Peritoneal Dialysis GI Medical History: Reports: Hx Gastroesophageal Reflux Disease. Denies: Hx Cirrhosis, Hx Hepatitis, Hx Hiatal Hernia, Hx Ulcer Musculoskeltal Medical History: Reports Hx Arthritis - GENERAL Psychiatric Medical History: Denies: Hx Depression Infectious Medical History: Denies: Hx Hepatitis Past Surgical History: Reports: Hx Orthopedic Surgery - rthr. Denies: Hx Hysterectomy, Hx Mastectomy, Hx Open Heart Surgery, Hx Pacemaker - Immunizations Hx Diphtheria, Pertussis, Tetanus Vaccination: Yes Doctor's Discharge - Discharge Referrals: JAMES MANRIQUEZ MD [Primary Care Provider] - Follow up as needed
[2019-03-30 17:26] LABS: INTERNATIONAL RATION (INR) 1.03; PARTIAL THROMBOPLASTIN TIME 26.1 SEC (23.5-35.8); PROTHROMBIN TIME 13.5 SEC (11.4-15.4)
[2019-03-30 17:39] LABS: ABSOLUTE EOSINOPHILS # (AUTO) 0.1 10^3/uL (0.0-0.6); ABSOLUTE LYMPHOCYTES (AUTO) 1.3 10^3/uL (0.5-4.7); ABSOLUTE MONOCYTES (AUTO) 0.6 10^3/uL (0.1-1.4); ABSOLUTE NEUT (AUTO) 4.7 10^3/uL (1.7-8.2); BASOPHILS % (AUTO) 0.3 % (0-2); EOSINOPHILS % (AUTO) 1.2 % (0-6); HEMATOCRIT 36.3 % (36.0-47.0); HEMOGLOBIN 12.1 g/dL (12.0-15.5); LYMPHOCYTES % (AUTO) 19.4 % (13-45); MEAN CORPUSCULAR HEMOGLOBIN 30.1 pg (27.0-33.4); MEAN CORPUSCULAR HGB CONC 33.2 g/dL (32.0-36.0); MEAN CORPUSCULAR VOLUME 91 fl (80-97); MONOCYTES % (AUTO) 9.4 % (3-13); PLATELET COUNT 277 10^3/uL (150-450); RED BLOOD COUNT 4.01 10^6/uL (3.72-5.28); RED CELL DISTRIBUTION WIDTH 18.1 % (11.5-14.0); SEGMENTED NEUTROPHILS % (AUTO) 69.7 % (42-78); TOTAL CELLS COUNTED % (AUTO) 100 %; WHITE BLOOD COUNT 6.7 10^3/uL (4.0-10.5)
--- NOTE | 2019-03-30 17:43 | RADIOLOGY REPORT (SQ) ---
EXAM DESCRIPTION: CHEST SINGLE VIEW COMPLETED DATE/TIME: 03/30/2019 5:29 pm REASON FOR STUDY: confusion, medina, decreased vision COMPARISON: 09/16/2007 TECHNIQUE: Single frontal radiographic view of the chest acquired. NUMBER OF VIEWS: One view. LIMITATIONS: None. FINDINGS: LUNGS AND PLEURA: No pneumothorax. No consolidation or pleural effusion. MEDIASTINUM AND HILAR STRUCTURES: Stable. HEART AND VASCULAR STRUCTURES: Stable. BONES: No acute findings. HARDWARE: None in the chest. OTHER: No other significant finding. IMPRESSION: NO ACUTE FINDINGS. TECHNICAL DOCUMENTATION: JOB ID: [id number] [place]-72 2010 [employer]- All Rights Reserved Reading location - IP/workstation name: [email or web address]
--- NOTE | 2019-03-30 18:25 | RADIOLOGY REPORT (SQ) ---
EXAM DESCRIPTION: CT HEAD WITHOUT COMPLETED DATE/TIME: 03/30/2019 6:06 pm REASON FOR STUDY: confusion, medina, decreased vision COMPARISON: CT head 07/10/2016 TECHNIQUE: Axial images acquired through the brain without intravenous contrast. Images reviewed wi th bone, brain and subdural windows. Additional sagittal and coronal reconstructions were generated. Images stored on PACS. All CT scanners at this facility use dose modulation, iterative reconstruction, and/or weight based d osing when appropriate to reduce radiation dose to as low as reasonably achievable (ALARA). [facility]: Dose Right [facility]: CareDose [facility]: Dose Right [facility]: Teradose 4D [facility]: Smart interspireSubmit RADIATION DOSE: CT Rad equipment meets quality standard of care and radiation dose reduction techniq ues were employed. CTDIvol: 53.2 mGy. DLP: 911 mGy-cm. mGy. LIMITATIONS: None. FINDINGS: VENTRICLES: Unchanged ventricular prominence secondary to involutional atrophy. CEREBRUM: No masses. No hemorrhage. No midline shift. No evidence for acute infarction. Old left p osterior frontal lobe infarct. Similar scattered hyperdense foci within the subcortical and perivent ricular white matter, consistent with chronic small vessel ischemic changes. CEREBELLUM: No masses. No hemorrhage. No alteration of density. No evidence for acute infarction. EXTRAAXIAL SPACES: No fluid collections. No masses. ORBITS AND GLOBE: Left scleral buckling. Homogeneous hyperattenuation of the left vitreous chamber. CALVARIUM: No fracture. PARANASAL SINUSES: No fluid or mucosal thickening. SOFT TISSUES: No mass or hematoma. OTHER: No other significant finding. IMPRESSION: No acute intracranial findings. Old left posterior frontal lobe infarct and chronic sma ll vessel ischemic changes. Postsurgical changes of left scleral buckling. Left vitreous hemorrhage. EVIDENCE OF ACUTE STROKE: NO. COMMENT: Quality ID # [id number]: Final reports with documentation of one or more dose reduction techniques (e.g., Automated exposure control, adjustment of the mA and/or kV according to patient size, use of iterative reconstruction technique) TECHNICAL DOCUMENTATION: JOB ID: [id number] [employer]- All Rights Reserved Reading location - IP/workstation name: [email or web address]
--- NOTE | 2019-03-30 19:15 | ER Document Report ---
ED General - General Chief Complaint: Blurred Vision Stated Complaint: HEADACHE,BLURRED VISION Time Seen by Provider: 03/30/19 16:45 Primary Care Provider: JAMES MANRIQUEZ MD [Primary Care Provider] - Follow up as needed Mode of Arrival: Wheelchair TRAVEL OUTSIDE OF THE [place] IN LAST 30 DAYS: No - Related Data Allergies/Adverse Reactions: No Known Allergies Allergy (Verified 06/13/16 09:31) Past Medical History - General Information source: Patient, Relative - Social History Smoking Status: Never Smoker Family History: Reviewed & Not Pertinent Patient has suicidal ideation: No Patient has homicidal ideation: No - Past Medical History Cardiac Medical History: Reports: Hx Coronary Artery Disease - Questionable [place] in past, per Dr. Toro, according to patient., Hx Heart Attack, Hx Hypercholesterolemia, Hx Hypertension Denies: Hx Congestive Heart Failure, Hx DVT, Hx Pulmonary Embolism Pulmonary Medical History: Reports: Hx Pneumonia - WALKING PNA Denies: Hx Asthma, Hx Bronchitis, Hx COPD Neurological Medical History: Denies: Hx Cerebrovascular Accident, Hx Seizures Endocrine Medical History: Denies: Hx Diabetes Mellitus Type 1, Hx Diabetes Lacey litus Type 2, Hx Hyperthyroidism, Hx Hypothyroidism Renal/ Medical History: Reports: Hx Peritoneal Dialysis GI Medical History: Reports: Hx Gastroesophageal Reflux Disease. Denies: Hx Cirrhosis, Hx Hepatitis, Hx Hiatal Hernia, Hx Ulcer Musculoskeletal Medical History: Reports Hx Arthritis - GENERAL Psychiatric Medical History: Denies: Hx Depression Infectious Medical History: Denies: Hx Hepatitis Past Surgical History: Reports: Hx Orthopedic Surgery - rthr. Denies: Hx Hysterectomy, Hx Mastectomy, Hx Open Heart Surgery, Hx Pacemaker - Immunizations Hx Diphtheria, Pertussis, Tetanus Vaccination: Yes Hx Pneumococcal Vaccination: 04/02/15 Physical Exam - Vital signs Vitals: Temp Pulse Resp BP 97.3 F 92 20 101/57 L 03/30/19 16:49 03/30/19 16:49 03/30/19 16:49 03/30/19 16:49 - Notes Notes: Patient presents the emergency department with complaint of a frontal headache that is been going on all day. Describes as a pounding sensation. Came on gradually got progressively worse was no thunderclap headache of the worst headache she is ever had. Was associated with some blurry vision with the right being much greater than the left some nausea and some dizziness. Vertigo is a spinning sensation is seen to be worse with movement and better with rest. Symptoms persisted throughout the day so they presented to the emergency department. Patient also reports that earlier today she lost total vision in the right eye for about 30 minutes. She says she felt a curtain going over the eye that time the said that she could not see anything to the right cheek to the left she says all symptoms have resolved completely right now. Again she tells me that the symptoms have resolved completely and later said that she still has little bit of blurriness in the right eye she did not have any numbness or weakness in the arms or legs. Her speech was clear. She will bit of nausea but no vomiting she had no chest pain or shortness of breath palpitations. Denies any recent fevers cough or URI symptoms nominal pain or diarrhea appetite is been good there is been no falls or trauma. reports that patient is had some confusion has been going on for several months again has been going on for several months. No different today than has been. She is scheduled for cardiac cath next week to determine if this is a possible etiology. Past medical history sniffing for hypertension coronary artery disease questionable [place] in the past. No diabetes. Also has a history of detached retina with surgery in 2018 time she had no symptoms at all was found on routine eye exam. Social history she does smoke but does not drink Is 1 Review of systems pertinent positives and negatives in HPI otherwise all the systems were reviewed and acutely negative says she was able to walk out of the car PHYSICIAN EXAM -vital signs are noted triage note and note from triage reviewed GENERAL: Well-appearing, well-nourished and in _acute distress HEAD: Atraumatic, normocephalic. EYES: Pupils equal round and reactive to light, extraocular movements intact, there is no nystagmus or photophobia sclera anicteric, conjunctiva are normal. For some blurry vision in the right eye when the left eye is closed when both eyes are open ENT: nares patent, oropharynx clear without exudates. Moist mucous membranes. She has some tenderness in the temporal area bilaterally but no pulsations face is nontender NECK: supple without lymphadenopathy no meningeal signs LUNGS: Breath sounds clear to auscultation bilaterally and equal. No wheezes rales or rhonchi. HEART: Regular rate and rhythm without murmurs ABDOMEN: Soft, nontender, normoactive bowel sounds. EXTREMITIES: No deformity, no edema. NEUROLOGICAL: Alert and oriented x4. Cranial nerves he has symmetrical smile facies and shoulder shrug. His motor strength is 5/5 bilaterally in the upper and lower extremities. Toes downgoing. Sensation is intact to light touch and pinprick is a negative Romberg and gait was reported as normal per . No vertiginous symptoms with rapid movement of her head or sitting PSYCH: Normal mood, normal affect. SKIN: Warm, Dry, normal turgor, no rashes or lesions noted. BACK-nontender in the midline Differential vertigo temporal arteritis TIA Course - Re-evaluation Re-evalutation: 03/31/19 01:28 ED patient is remained stable continues to have a nonfocal neurologic exam she says her vision has improved still has a little bit of a headache Medical decision making patient presents with acute onset of blindness in the right eye for possible TIA. I did radiology we do not have anybody administrative liaison for MRI tonight. Discussed case with hospitalist who felt we did have neurology the patient be transferred. Consulted [facility] however they have no beds. Did discuss case at length including CT findings and physical exam findings with neurology and on-call in [place] and they did not feel the patient needed to be transferred. They indicated the 2 mm aneurysm even if present would not require any intervention other than follow-up. They indicated that that they will pass patients name onto the neuro radiology follow-up. Recommended starting the patient on Plavix admission echo statins and MRI in the morning and consider MRI at the same time reconsult the hospitalist and they have agreed to meet the patient at 130 - Vital Signs Vital signs: Temp Pulse Resp BP Pulse Ox 98.3 F 81 23 H 124/66 98 03/30/19 23:15 03/30/19 17:21 03/30/19 23:12 03/30/19 20:00 03/30/19 20:00 - Laboratory Result Diagrams: 03/30/19 17:10 03/30/19 19:25 Laboratory results interpreted by me: 03/30/19 03/30/19 03/30/19 17:10 17:10 19:25 RDW 18.1 H ESR 32 H POC Glucose AST 61 H Creatine Kinase 1261 H Total Protein 6.0 L Albumin 3.1 L Urine Ascorbic Acid 12/03/30/19 03/30/19 20:05 20:35 22:32 RDW ESR POC Glucose 52 L 123 H AST Creatine Kinase Total Protein Albumin Urine Ascorbic Acid 40 H - Diagnostic Test Radiology reviewed: Reports reviewed - EKG Interpretation by Me Additional EKG results interpreted by me: 03/31/19 01:32 Continue read by me shows a normal sinus rhythm with an old infarct and occasional PVCs these are new but the other findings are old 03/31/19 01:55 Lead EKG is unchanged from the first interval has prolonged slightly Critical Care Note - Critical Care Note Total time excluding time spent on procedures (mins): 35 Comments: Patient presents with headache and dizziness and then developed acute onset of blindness she had some tenderness in the temporal area concerned that the time her temporal arteritis TIA CVA. Serial exams multiple medical interventions and multiple consultations Discharge - Discharge Clinical Impression: TIA (transient ischemic attack), Headache, Elevated CPK Condition: Good Disposition: ADMITTED INPATIENT Admitting Provider: Alfred (Hospitalist) Unit Admitted: IMCU Referrals: JAMES MANRIQUEZ MD [Primary Care Provider] - Follow up as needed
--- NOTE | 2019-03-30 19:29 | EKG REPORT ---
SEVERITY:- ABNORMAL ECG - SINUS RHYTHM MULTIFORM VENTRICULAR PREMATURE COMPLEXES PROBABLE LEFT ATRIAL ABNORMALITY BORDERLINE IVCD WITH LAD INFERIOR INFARCT, AGE INDETERMINATE CONSIDER ANTERIOR INFARCT : Confirmed by: Parris Osullivan MD 30-Mar-2019 19:28:37
[2019-03-30 19:57] LABS: ALBUMIN 3.1 g/dL (3.5-5.0); ALKALINE PHOSPHATASE 82 U/L (38-126); ANION GAP 11 (5-19); ASPARTATE AMINO TRANSFERASE 61 U/L (14-36); BILIRUBIN,DIRECT 0.2 mg/dL (0.0-0.4); BILIRUBIN,TOTAL 0.4 mg/dL (0.2-1.3); BLOOD UREA NITROGEN 13 mg/dL (7-20); CALCIUM 8.7 mg/dL (8.4-10.2); CARBON DIOXIDE 24 mmol/L (22-30); CHLORIDE 105 mmol/L (98-107); CREATINE KINASE 1261 U/L (30-135); GLUCOSE 90 mg/dL (75-110)
[2019-03-30 20:13] LABS: CREATINE KINASE MB 1.22 ng/mL (<4.55)
[2019-03-30 20:14] LABS: TROPONIN I < 0.012 ng/mL
--- NOTE | 2019-03-30 21:29 | RADIOLOGY REPORT (SQ) ---
EXAM DESCRIPTION: CT NECK ANGIOGRAPHY WITHOUT THEN WITH IV CONTRAST COMPLETED DATE/TME: 03/30/2019 19:22 CLINICAL HISTORY: 74 years, Female, TIA COMPARISON: None. TECHNIQUE: Images stored on PACS. All CT scanners at this facility use dose modulation, iterative reconstruction, and/or weight based dosing when appropriate to reduce radiation dose to as low as reasonably achievable (ALARA). [facility]: Dose Right [facility]: CareDose [facility]: Dose Right [facility]: Teradose 4D [facility]: [employer] LIMITATIONS: None. EXAM DESCRIPTION: CLINICAL HISTORY: TIA COMPARISON: None Available TECHNIQUE: Contiguous axial CT images of the head and neck were obtained. Images were obtained prior to and following intravenous contrast administration. Coronal and sagittal reconstructions were then created along with MIPs through the vessels of [place] and the neck. This exam was performed according to our departmental dose-optimization program, which includes automated exposure control, adjustment of the mA and/or kV according to patient size and/or use of iterative reconstruction technique. NASCET criteria utilized for the evaluation of any stenotic lesions. FINDINGS: At the origin of the A1 segment of the left ELVIS there is a possible small broad-based aneurysm measuring 2 mm diameter. However this is poorly seen and confirmation is recommended if intervention is contemplated. There is calcification at the origin of the left subclavian artery with approximately 50% narrowing. There is atherosclerotic plaque and calcification of the left common carotid artery with approximately 30% narrowing. There is calcification at the left ICA cavernous portion with approximately 40% narrowing. There is calcification of the right ICA cavernous portion with approximately 30% narrowing. There is calcification of the right common carotid artery with approximately 35% stenosis. There is moderate mucosal thickening in the left maxillary sinus. 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 Peripheral pulmonary bulla are present. IMPRESSION: Possible tiny aneurysm of the left A1 segment. Confirmation is recommended if surgery is contemplated as this could be artifact. Stenoses as above.
--- NOTE | 2019-03-30 21:33 | RADIOLOGY REPORT (SQ) ---
EXAM DESCRIPTION: CT HEAD ANGIOGRAPHY WITHOUT THEN WITH IV CONTRAST COMPLETED DATE/TME: 03/30/2019 19:22 CLINICAL HISTORY: 74 years, Female, tia COMPARISON: None. TECHNIQUE: Images stored on PACS. All CT scanners at this facility use dose modulation, iterative reconstruction, and/or weight based dosing when appropriate to reduce radiation dose to as low as reasonably achievable (ALARA). [facility]: Dose Right [facility]: CareDose [facility]: Dose Right [facility]: Teradose 4D [facility]: [employer] : 1945 Gender: Female Age: 74y MPI: [id number] SSN: Home #: Work #: Mobile #: Referring Physician: AKIKO KERR DR Date of Visit: 03/30/2019 [facility] REPORT OF RADIOLOGY CONSULTATION EXAM DESCRIPTION: CT HEAD ANGIOGRAPHY WITHOUT THEN WITH IV CONTRAST COMPLETED DATE/TME: 03/30/2019 19:22 CLINICAL HISTORY: 74 years, Female, TIA COMPARISON: None. TECHNIQUE: Images stored on PACS. All CT scanners at this facility use dose modulation, iterative reconstruction, and/or weight based dosing when appropriate to reduce radiation dose to as low as reasonably achievable (ALARA). [facility]: Dose Right [facility]: CareDose [facility]: Dose Right [facility]: Teradose 4D [facility]: [employer] LIMITATIONS: None. EXAM DESCRIPTION: CLINICAL HISTORY: TIA COMPARISON: None Available TECHNIQUE: Contiguous axial CT images of the head and neck were obtained. Images were obtained prior to and following intravenous contrast administration. Coronal and sagittal reconstructions were then created along with MIPs through the vessels of [place] and the neck. This exam was performed according to our departmental dose-optimization program, which includes automated exposure control, adjustment of the mA and/or kV according to patient size and/or use of iterative reconstruction technique. NASCET criteria utilized for the evaluation of any stenotic lesions. FINDINGS: At the origin of the A1 segment of the left ELVIS there is a possible small broad-based aneurysm measuring 2 mm diameter. However this is poorly seen and confirmation is recommended if intervention is contemplated. There is calcification at the origin of the left subclavian artery with approximately 50% narrowing. There is atherosclerotic plaque and calcification of the left common carotid artery with approximately 30% narrowing. There is calcification at the left ICA cavernous portion with approximately 40% narrowing. There is calcification of the right ICA cavernous portion with approximately 30% narrowing. There is calcification of the right common carotid artery with approximately 35% stenosis. There is moderate mucosal thickening in the left maxillary sinus. 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 Peripheral pulmonary bulla are present. IMPRESSION: Possible tiny aneurysm of the left A1 segment. Confirmation is recommended if surgery is contemplated as this could be artifact. Stenoses as above.
[2019-03-30 21:55] LABS: APPEARANCE,URINE SLIGHTLY-CLOUDY; BILIRUBIN,URINE NEGATIVE (NEGATIVE); COLOR,URINE YELLOW; GLUCOSE, URINE NEGATIVE (NEGATIVE); KETONES,URINE NEGATIVE (NEGATIVE); LEUKOCYTE ESTERASE,URINE NEGATIVE (NEGATIVE); NITRITE,URINE NEGATIVE (NEGATIVE); PROTEIN,URINE NEGATIVE (NEGATIVE); URINE SPECIFIC GRAVITY 1.011; UROBILINOGEN,URINE NEGATIVE mg/dL (<2.0)
[2019-03-31] MEDS ORDERED: NORMAL SALINE 500 ML IV ONE
[2019-03-31] MEDS ORDERED: NORMAL SALINE 1000 ML 1,000 ML IV ONE
[2019-03-31] MEDS ORDERED: FENTANYL CITRATE INJ/PF 100 MCG/2 ML AMPUL IV ONE (00:02)
[2019-03-31] MEDS ORDERED: CLOPIDOGREL BISULFATE 75 MG TABLET PO ONE (01:34)
[2019-03-31] MEDS ORDERED: ACETAMINOPHEN 325 MG TABLET PO PRN (02:08)
[2019-03-31] MEDS ORDERED: MAGNESIUM HYDROXIDE SUSP 30 ML UDCUP PO PRN (02:08)
[2019-03-31] MEDS ORDERED: DOCUSATE SODIUM 100 MG CAPSULE PO PRN (02:08)
[2019-03-31] MEDS ORDERED: LABETALOL HCL INJ 20 MG/4 ML DISP.SYRIN IV PRN (02:08)
[2019-03-31] MEDS ORDERED: ONDANSETRON HCL INJ/PF 4 MG/2 ML SDV IV PRN (02:08)
--- NOTE | 2019-03-31 05:20 | PDOC H&P ---
History of Present Illness Admission Date/PCP: 03/31/2019 01:35 JAMES MANRIQUEZ MD Patient complains of: Headache History of Present Illness: VALERIO AUSTIN is a 74 year old female who presented to the emergency room with an acute headache. She admits that her frontal headache came on in the morning and intensified over the course of the day as a pounding sensation behind her eyes. The headache was accompanied by bilateral blurry vision with the right side worse than left side and a 30-minute period of complete blindness in the right eye "like a curtain was drawn over my eye", with the headache reaching its greatest intensity at this time (4 out of 5). The headache then rapidly resolved and her visual symptoms also reached near complete resolution with the exception of minimal blurriness in the right eye. The headache was also accompanied by mild vertigo and nausea which resolved with the headache. She denies other associated or accompanying signs and symptoms. The patient denies prior similar episodes. The patient has not identified any aggravating or ameliorating factors for her headache. In the emergency room she was found to have a normal CT of the head but on a CTA of the neck there was a questionable aneurysm which will need to be further delineated with an MRI and MRA per neurology at [facility]. Patient was subsequently admitted to the stroke protocol for further evaluation treatment. Past Medical History Cardiac Medical History: Reports: Coronary Artery Disease, Myocardial Infarction, Hyperlipidema, Hypertension Denies: Congestive Heart Failure, DVT, Pulmonary Embolism Pulmonary Medical History: Reports: Pneumonia Denies: Asthma, Bronchitis, Chronic Obstructive Pulmonary Disease (COPD) EENT Medical History: Reports: Eyes - Detached retina Denies: Ears - Hearing aids Neurological Medical History: Denies: Hemorrhagic CVA, Ischemic CVA, Seizures Endocrine Medical History: Denies: Diabetes Mellitus Type 1, Diabetes Mellitus Type 2, Hyperthyroidism, Hypothyroidism, Obesity Renal/ Medical History: Denies: Chronic Kidney Disease, Nephrolithiasis Malignancy Medical History: Reports: None GI Medical History: Reports: Gastroesophageal Reflux Disease Denies: Cirrhosis, Crohn's Disease, Hepatitis, Hiatal Hernia, Peptic Ulcer Disease, Ulcerative Colitis Musculoskeltal Medical History: Reports: Arthritis - Osteoarthritis in multiple joints Denies: Gout Skin Medical History: Denies: Eczema, Psoriasis Psychiatric Medical History: Reports: Alcohol Dependency, Dementia - Mild early dementia noted per over the last 6 months, General Anxiety Disorder, Substance Abuse, Tobacco Dependency Denies: Depression Traumatic Medical History: Reports: None Hematology: Denies: Anemia, Bleeding Tendencies Infectious Medical History: Reports: None Past Surgical History Past Surgical History: Reports: Hip Replacement, Other - Surgery for detached retina Social History Information Source: Patient Lives with: Spouse/Significant other Smoking Status: Current Every Day Smoker Electronic Cigarette use?: No Frequency of Alcohol Use: Occasional - History of much heavier alcohol use in the past and her current level of usage. Hx Recreational Drug Use: Yes Drugs: Marijuana Hx Prescription Drug Abuse: No - Advance Directive Resuscitation Status: Full Code Surrogate healthcare decision maker:: Jean Virgil Family History Family History: CAD, Hypertension. denies: DM, Malignancy Parental Family History Reviewed: Yes Children Family History Reviewed: No Sibling(s) Family History Reviewed.: Yes Medication/Allergy Home Medications: Amlodipine/Atorvastatin [Amlodipine-Atorvast 10-40 mg] 1 each PO DAILY 07/10/16 Ferrous Sulfate 140 mg PO DAILY 07/10/16 Lorazepam [Ativan 1 mg Tablet] 0.5 mg PO QHS 07/10/16 Raloxifene HCl [Evista 60 mg Tablet] 60 mg PO DAILY 07/10/16 Allergies/Adverse Reactions: No Known Allergies Allergy (Verified 06/13/16 09:31) Review of Systems Constitutional: ABSENT: chills, fever(s) Eyes: PRESENT: as per HPI, visual disturbances. ABSENT: other - Eye pain Ears: ABSENT: hearing changes, other - Ear pain Nose, Mouth, and Throat: PRESENT: as per HPI, vertigo. ABSENT: headache(s), mouth pain, sore throat Cardiovascular: ABSENT: chest pain, palpitations Respiratory: ABSENT: cough, dyspnea Gastrointestinal: PRESENT: nausea. ABSENT: abdominal pain, constipation, diarrhea, vomiting Genitourinary: ABSENT: dysuria, hematuria Musculoskeletal: ABSENT: back pain, joint swelling, muscle weakness Integumentary: ABSENT: pruritus, rash Neurological: PRESENT: as per HPI, confusion - Mild chronic confusion over the last 6 months per , vertigo, other - Vision changes. ABSENT: convulsions, focal weakness, memory loss, syncope Psychiatric: ABSENT: anxiety, depression Endocrine: ABSENT: cold intolerance, heat intolerance Hematologic/Lymphatic: ABSENT: easy bleeding, easy bruising Allergic/Immunologic: ABSENT: seasonal rhinorrhea Physical Exam Vital Signs: Temp Pulse Resp BP Pulse Ox 98.3 F 81 23 H 124/66 98 03/30/19 23:15 03/30/19 17:21 03/30/19 23:12 03/30/19 20:00 03/30/19 20:00 Intake & Output 03/29/19 03/30/19 03/31/19 23:59 23:59 23:59 Weight 53 kg General appearance: PRESENT: no acute distress, cooperative Head exam: PRESENT: atraumatic, normocephalic Eye exam: PRESENT: conjunctiva pink. ABSENT: conjunctival injection, scleral icterus Ear exam: PRESENT: normal external ear exam. ABSENT: bleeding, drainage Mouth exam: PRESENT: dry mucosa, neck supple Neck exam: ABSENT: JVD, thyromegaly, tracheal deviation Respiratory exam: PRESENT: clear to auscultation tiago, symmetrical, unlabored Cardiovascular exam: PRESENT: RRR. ABSENT: clicks, gallop, rubs Pulses: PRESENT: normal radial pulses, normal dorsalis pedis pul Vascular exam: PRESENT: normal capillary refill. ABSENT: pallor GI/Abdominal exam: PRESENT: normal bowel sounds, soft Rectal exam: PRESENT: deferred Extremities exam: ABSENT: joint swelling, pedal edema Musculoskeletal exam: ABSENT: deformity, dislocation Neurological exam: PRESENT: alert, oriented to person, oriented to place, oriented to time, oriented to situation, CN II-XII grossly intact. ABSENT: motor sensory deficit Psychiatric exam: PRESENT: appropriate affect, normal mood Skin exam: PRESENT: dry, intact, warm. ABSENT: jaundice, rash, urticaria Results Laboratory Results: 03/30/19 17:10 03/30/19 19:25 03/30/19 03/30/19 03/30/19 17:10 17:10 17:53 WBC 6.7 RBC 4.01 Hgb 12.1 Hct 36.3 MCV 91 MCH 30.1 MCHC 33.2 RDW 18.1 H Plt Count 277 Seg Neutrophils % 69.7 Sodium Cancelled Cancelled Potassium Cancelled Cancelled Chloride Cancelled Cancelled Carbon Dioxide Cancelled Cancelled Anion Gap Cancelled Cancelled BUN Cancelled Cancelled Creatinine Cancelled Cancelled Est GFR ( Amer) Cancelled Cancelled Est GFR (Non-Af Amer) Cancelled Cancelled Glucose Cancelled Cancelled Calcium Cancelled Cancelled Total Bilirubin Cancelled Cancelled AST Cancelled Cancelled Alkaline Phosphatase Cancelled Cancelled Total Protein Cancelled Cancelled Albumin Cancelled Cancelled Urine Color Urine Appearance Urine pH Ur Specific [place] Urine Protein Urine Glucose (UA) Urine Ketones Urine Blood Urine Nitrite Ur Leukocyte Esterase Urine WBC (Auto) Urine RBC (Auto) 03/30/19 03/30/19 19:25 20:05 WBC RBC Hgb Hct MCV MCH MCHC RDW Plt Count Seg Neutrophils % Sodium 139.7 Potassium 4.0 Chloride 105 Carbon Dioxide 24 Anion Gap 11 BUN 13 Creatinine 0.58 Est GFR ( Amer) > 60 Est GFR (Non-Af Amer) Glucose 90 Calcium 8.7 Total Bilirubin 0.4 AST 61 H Alkaline Phosphatase 82 Total Protein 6.0 L Albumin 3.1 L Urine Color YELLOW Urine Appearance SLIGHTLY-CLOUDY Urine pH 6.0 Ur Specific [place] 1.011 Urine Protein NEGATIVE Urine Glucose (UA) NEGATIVE Urine Ketones NEGATIVE Urine Blood NEGATIVE Urine Nitrite NEGATIVE Ur Leukocyte Esterase NEGATIVE Urine WBC (Auto) 2 Urine RBC (Auto) 0 03/30/19 03/30/19 03/30/19 17:10 17:10 17:53 Creatine Kinase Cancelled Cancelled CK-MB (CK-2) Cancelled Troponin I Cancelled 03/30/19 03/30/19 03/30/19 17:53 19:25 19:25 Creatine Kinase 1261 H CK-MB (CK-2) Cancelled 1.22 Troponin I Cancelled < 0.012 Impressions: Chest X-Ray 03/30/19 16:46 IMPRESSION: NO ACUTE FINDINGS. Head CT 03/30/19 16:46 IMPRESSION: No acute intracranial findings. 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 Postsurgical changes of left scleral buckling. Left vitreous hemorrhage. EVIDENCE OF ACUTE STROKE: NO. Head CTA 03/30/19 19:22 IMPRESSION: Possible tiny aneurysm of the left A1 segment. Confirmation is recommended if surgery is contemplated as this could be artifact. Stenoses as above. Neck CTA 03/30/19 19:22 IMPRESSION: Possible tiny aneurysm of the left A1 segment. Confirmation is recommended if surgery is contemplated as this could be artifact. Stenoses as above. Assessment and Plan - Diagnosis (1) Amaurosis fugax of right eye Is this a current diagnosis for this admission?: Yes (2) Frontal headache Is this a current diagnosis for this admission?: Yes (3) Blurring, bilateral Is this a current diagnosis for this admission?: Yes (4) HTN (hypertension) Qualifiers: Hypertension type: essential hypertension Qualified Code(s): I10 - Essential (primary) hypertension Is this a current diagnosis for this admission?: Yes (5) HLD (hyperlipidemia) Qualifiers: Hyperlipidemia type: unspecified Qualified Code(s): E78.5 - Hyperlipidemia, unspecified Is this a current diagnosis for this admission?: Yes (6) Tobacco dependency Is this a current diagnosis for this admission?: Yes (7) Marijuana use Is this a current diagnosis for this admission?: Yes (8) Alcohol use Is this a current diagnosis for this admission?: Yes - Plan Summary Summary: Patient will be admitted to the [facility] where she will receive routine supportive and symptomatic cares via the stroke protocol. Consultations with the stroke nurse, PT, OT, speech therapy, social insurance administrator and the registered dietitian will be obtained. Patient will be started on initial therapy is appropriate utiliz ing Plavix and aspirin. An MRI of the brain and an MRA of the neck will be obtained as per recommendation of neurology at [facility]. Patient will be placed on a cardiac diet. She will be continued on her usual medications for her chronic medical problems as appropriate. Routine labs will be obtained per the stroke protocol. Smoking cessation is advised and counseled briefly at the bedside. A nicotine replacement patch is available for the patient's use, if desired. - Time Time Spent with patient: 15-24 minutes Smoking Cessation Education: 3 to 10 minutes Medications reviewed and adjusted accordingly: Yes Anticipated discharge: Home - Inpatient Certification Based on my medical assessment, after consideration of the patient's comorbi dities, presenting symptoms, or acuity I expect that the services needed warrant INPATIENT care.: Yes I certify that my determination is in accordance with my understanding of Medicare's requirements for reasonable and necessary INPATIENT services [42 CFR 412.3e].: Yes Medical Necessity: Significant Comorbidiites Make Outpatient Treatment Too Risky, Need Close Monitoring Due to Risk of Patient Decompensation, Need For Continuous Telemetry Monitoring, Need for Neurological Checks, Risk of Complication if Not Cared For in Hospital, Risk of Diagnosis Which Will Require Inpatient Eval/Care/Monitoring
[2019-03-31] MEDS: HEPARIN SOD (PORCINE) 5,000 UNIT/ML 1 ML VIAL SUBCUT SCH ×4 (05:24→21:53)
[2019-03-31] MEDS ORDERED: HALOPERIDOL 2 MG TABLET PO PRN (06:53)
--- NOTE | 2019-03-31 07:56 | EKG REPORT ---
SEVERITY:- ABNORMAL ECG - SINUS RHYTHM LEFT AXIS DEVIATION LOW VOLTAGE IN FRONTAL LEADS CONSIDER ANTERIOR INFARCT BORDERLINE PROLONGED QT INTERVAL : Confirmed by: Ezra Toro MD 31-Mar-2019 07:56:19
[2019-03-31] MEDS: FAMOTIDINE 20 MG TABLET PO SCH ×2 (10:05→21:53)
[2019-03-31] MEDS: CLOPIDOGREL BISULFATE 75 MG TABLET PO SCH (10:05)
[2019-03-31] MEDS: ASPIRIN 81 MG TABLET, ENT COATED PO SCH (10:05)
--- NOTE | 2019-03-31 15:39 | Progress Note ---
Provider Note Provider Note: 03/31/2019 Patient admitted after midnight for an apparent TIA, amaurosis fugax, CVA Work-up is in progress, MRI of the brain, MRA of the neck, she states that her vision has improved and is almost normal Patient currently on 81 mg of aspirin as well as Plavix. Plavix is a new medication
--- NOTE | 2019-03-31 16:03 | RADIOLOGY REPORT (SQ) ---
EXAM DESCRIPTION: MRI HEAD WITHOUT COMPLETED DATE/TIME: 03/31/2019 3:39 pm REASON FOR STUDY: Acute amaurosis fugax right COMPARISON: 03/30/2019 TECHNIQUE: Multiplanar imaging includes non-contrasted T1, T2, FLAIR, and diffusion with ADC map seq uences. Images stored on PACS. LIMITATIONS: None. FINDINGS: ANATOMY: No anomalies. Normal vascular flow voids. Pituitary fossa normal. CSF SPACES: Atrophy induced prominence of ventricles and CSF spaces. CEREBRUM: High signal intensity lesions scattered throughout the white matter on FLAIR imaging with d istribution suggesting micro-vascular ischemic changes. No evidence of hemorrhage, mass, or extraaxi al fluid collection. POSTERIOR FOSSA: No signal alteration. No hemorrhage. No edema, masses or mass effect. Internal jenni tory canals, cerebello-pontine angles, mastoids normal. DIFFUSION IMAGING: Positive for acute or sub-acute infarction any 3 cm area in the lateral right occi pital lobe. ORBITS: No masses. Globes normal. PARANASAL SINUSES: No fluid levels. Mucosa normal. OTHER: No other significant finding. IMPRESSION: Positive for acute or sub-acute infarction any 3 cm area in the lateral right occipital lobe. EVIDENCE OF ACUTE STROKE: YES. RIGHT RADIOLOGICAL METALLURGIST. COMMENT: The findings were sent to the Radiology Results Communication Center at 15:56 on 9 to be communicated to a licensed caregiver. TECHNICAL DOCUMENTATION: JOB ID: [id number] [place]-72 2010 [employer]- All Rights Reserved Reading location - IP/workstation name: [email or web address]
--- NOTE | 2019-03-31 16:11 | RADIOLOGY REPORT (SQ) ---
EXAM DESCRIPTION: MRA NECK WITHOUT COMPLETED DATE/TIME: 03/31/2019 3:39 pm REASON FOR STUDY: Amaurosis fugax right COMPARISON: 03/30/2019 TECHNIQUE: Axial 2-D volume acquisition imaging through the extracranial carotid and vertebral arter ies with reformatting using 3-D MIPS. LIMITATIONS: Moderate motion artifact. FINDINGS: RIGHT CAROTID ARTERY: No significant stenosis identified given motion artifact. LEFT CAROTID ARTERY: No significant stenosis identified given motion artifact. VERTEBRAL ARTERY: No significant stenosis identified given motion artifact. OTHER: No other significant finding. IMPRESSION: No significant stenosis identified given motion artifact. COMMENT: Quality ID #[id number]: Measurements of distal internal carotid diameter were used as the denomin ator for stenosis measurement. TECHNICAL DOCUMENTATION: JOB ID: [id number] [place]-72 2010 [employer]- All Rights Reserved Reading location - IP/workstation name: [email or web address]
[2019-03-31] MEDS: MELATONIN 5 MG TABLET PO PRN (21:53)
[2019-04-01] MEDS: HEPARIN SOD (PORCINE) 5,000 UNIT/ML 1 ML VIAL SUBCUT SCH ×3 (05:16→21:48)
[2019-04-01 05:24] LABS: HEMATOCRIT 31.9 % (36.0-47.0); HEMOGLOBIN 10.7 g/dL (12.0-15.5); MEAN CORPUSCULAR HEMOGLOBIN 30.1 pg (27.0-33.4); MEAN CORPUSCULAR HGB CONC 33.7 g/dL (32.0-36.0); MEAN CORPUSCULAR VOLUME 89 fl (80-97); PLATELET COUNT 249 10^3/uL (150-450); RED BLOOD COUNT 3.58 10^6/uL (3.72-5.28); RED CELL DISTRIBUTION WIDTH 17.2 % (11.5-14.0); WHITE BLOOD COUNT 6.6 10^3/uL (4.0-10.5)
[2019-04-01 05:44] LABS: ALKALINE PHOSPHATASE 61 U/L (38-126); ANION GAP 8 (5-19); ASPARTATE AMINO TRANSFERASE 61 U/L (14-36); BILIRUBIN,DIRECT 0.1 mg/dL (0.0-0.4); BILIRUBIN,TOTAL 0.5 mg/dL (0.2-1.3); BLOOD UREA NITROGEN 6 mg/dL (7-20); CALCIUM 8.9 mg/dL (8.4-10.2); CARBON DIOXIDE 29 mmol/L (22-30); CHLORIDE 105 mmol/L (98-107); CHOLESTEROL 89.75 mg/dL (0-200); GLUCOSE 80 mg/dL (75-110); POTASSIUM 3.7 mmol/L (3.6-5.0); TOTAL PROTEIN 5.7 g/dL (6.3-8.2); TRIGLYCERIDES 66 mg/dL (<150)
[2019-04-01 05:55] LABS: DIRECT LDL 54 mg/dL (<100)
[2019-04-01] MEDS: ASPIRIN 81 MG TABLET, ENT COATED PO SCH (09:53)
[2019-04-01] MEDS: FAMOTIDINE 20 MG TABLET PO SCH ×2 (09:53→21:48)
[2019-04-01] MEDS: CLOPIDOGREL BISULFATE 75 MG TABLET PO SCH (09:53)
--- NOTE | 2019-04-01 14:23 | PDOC PROGRESS REPORT ---
Subjective Progress Note for:: 04/01/19 Subjective:: This is a 74-year-old female who initially presented with blurry vision and right blindness. MRI brain came back positive for acute/subacute CVA involving the lateral right occipital lobe. No acute event overnight. She says her vision continues to clear out. She denies headache. Denies chest pain or shortness of breath. Reason For Visit: ACUTE AMAUROSIS FUGAX OF THE RIGHT EYE WITH Physical Exam Vital Signs: Temp Pulse Resp BP Pulse Ox 97.4 F 94 17 110/55 L 96 04/01/19 11:50 04/01/19 12:00 04/01/19 12:00 04/01/19 12:00 04/01/19 12:00 Intake & Output 03/31/19 04/01/19 04/02/19 06:59 06:59 06:59 Intake Total 500 520 200 Output Total 800 Balance 500 -280 200 Weight 119 lb 0.794 oz 116 lb 13.52 oz 116 lb 13.52 oz General appearance: PRESENT: no acute distress, well-developed, well-nourished Head exam: PRESENT: atraumatic, normocephalic Eye exam: PRESENT: conjunctiva pink, EOMI, PERRLA. ABSENT: scleral icterus Ear exam: PRESENT: normal external ear exam Mouth exam: PRESENT: moist, tongue midline Neck exam: ABSENT: carotid bruit, JVD, lymphadenopathy, thyromegaly Respiratory exam: PRESENT: clear to auscultation tiago. ABSENT: rales, rhonchi, wheezes Cardiovascular exam: PRESENT: RRR. ABSENT: diastolic murmur, rubs, systolic murmur Pulses: PRESENT: normal dorsalis pedis pul GI/Abdominal exam: PRESENT: normal bowel sounds, soft. ABSENT: distended, guarding, mass, organolmegaly, rebound, tenderness Rectal exam: PRESENT: deferred Extremities exam: PRESENT: full ROM. ABSENT: calf tenderness, clubbing, pedal edema Neurological exam: PRESENT: alert, awake, oriented to person, oriented to place, oriented to time, oriented to situation Results Laboratory Results: 04/01/19 04:55 04/01/19 04:55 04/01/19 04/01/19 04:55 04:55 WBC 6.6 RBC 3.58 L Hgb 10.7 L Hct 31.9 L MCV 89 MCH 30.1 MCHC 33.7 RDW 17.2 H Plt Count 249 Sodium 141.5 Potassium 3.7 Chloride 105 Carbon Dioxide 29 Anion Gap 8 BUN 6 L Creatinine 0.53 Est GFR ( Amer) > 60 Glucose 80 Calcium 8.9 Total Bilirubin 0.5 AST 61 H Alkaline Phosphatase 61 Total Protein 5.7 L Albumin 3.0 L Triglycerides 66 Cholesterol 89.75 LDL Cholesterol Direct 54 VLDL Cholesterol 13.0 HDL Cholesterol 25 L 03/30/19 03/30/19 03/30/19 17:10 17:10 17:53 Creatine Kinase Cancelled Cancelled CK-MB (CK-2) Cancelled Troponin I Cancelled 03/30/19 03/30/19 03/30/19 17:53 19:25 19:25 Creatine Kinase 1261 H CK-MB (CK-2) Cancelled 1.22 Troponin I Cancelled < 0.012 Impressions: Chest X-Ray 03/30/19 16:46 IMPRESSION: NO ACUTE FINDINGS. Head CT 03/30/19 16:46 IMPRESSION: No acute intracranial findings. 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 Postsurgical changes of left scleral buckling. Left vitreous hemorrhage. EVIDENCE OF ACUTE STROKE: NO. Head CTA 03/30/19 19:22 IMPRESSION: Possible tiny aneurysm of the left A1 segment. Confirmation is recommended if surgery is contemplated as this could be artifact. Stenoses as above. Neck CTA 03/30/19 19:22 IMPRESSION: Possible tiny aneurysm of the left A1 segment. Confirmation is recommended if surgery is contemplated as this could be artifact. Stenoses as above. Head MRI 03/31/19 00:00 IMPRESSION: Positive for acute or sub-acute infarction any 3 cm area in the lateral right occipital lobe. EVIDENCE OF ACUTE STROKE: YES. RIGHT PATHOLOGIST. Neck MRA 03/31/19 00:00 IMPRESSION: No significant stenosis identified given motion artifact. Assessment and Plan - Diagnosis (1) Acute CVA (cerebrovascular accident) Is this a current diagnosis for this admission?: Yes Plan: MRI brain came aack positive for acute/subacute CVA involving the lateral right occipital lobe. Continue aspirin and statin. Continue optimizing blood pressure control. (2) Amaurosis fugax of right eye Is this a current diagnosis for this admission?: Yes Plan: As per #1. (3) HTN (hypertension) Qualifiers: Hypertension type: essential hypertension Qualified Code(s): I10 - Essential (primary) hypertension Is this a current diagnosis for this admission?: Yes Plan: Continue IV labetalol. Resume amlodipine. - Plan Summary Summary: Patient will be admitted to the [facility] where she will receive routine supportive and symptomatic cares via the stroke protocol. Consultations with the stroke nurse, PT, OT, speech therapy, neonatal social worker and the registered dietitian will be obtained. Patient will be started on initial therapy is appropriate utilizing Plavix and aspirin. An MRI of the brain and an MRA of the neck will be obtained as per recommendation of neurology at [facility]. Patient will be placed on a cardiac diet. She will be continued on her usual medications for her chronic medical problems as appropriate. Routine labs will be obtained per the stroke protocol. Smoking cessation is advised and counseled briefly at the bedside. A nicotine replacement patch is available for the patient's use, if desired. - Time Time Spent with patient: 25-34 minutes
[2019-04-01] MEDS ORDERED: MEGESTROL ACETATE 20 MG TABLET PO SCH (14:30)
[2019-04-01] MEDS ORDERED: FOLIC PO SCH (18:00)
[2019-04-01] MEDS ORDERED: [UNRECOGNIZED DRUG - OTHER] PO SCH (18:00)
[2019-04-01] MEDS ORDERED: PNV CALCIUM PO SCH (18:00)
[2019-04-01] MEDS ORDERED: IRON CARB PO SCH (18:00)
[2019-04-01] MEDS: PRENATAL VITAMIN W DHA CAPSULE PO SCH (18:46)
[2019-04-01] MEDS: MELATONIN 5 MG TABLET PO PRN (21:48)
[2019-04-01] MEDS ORDERED: ATORVASTATIN CALCIUM 40 MG TABLET PO SCH (22:00)
[2019-04-02] MEDS: HEPARIN SOD (PORCINE) 5,000 UNIT/ML 1 ML VIAL SUBCUT SCH (05:18)
[2019-04-02] MEDS: CLOPIDOGREL BISULFATE 75 MG TABLET PO SCH (09:59)
[2019-04-02] MEDS: ASPIRIN 81 MG TABLET, ENT COATED PO SCH (09:59)
[2019-04-02] MEDS: FAMOTIDINE 20 MG TABLET PO SCH (09:59)
[2019-04-02] MEDS: PRENATAL VITAMIN W DHA CAPSULE PO SCH (09:59)
[2019-04-02] MEDS ORDERED: (PENDING PHARMACY ID) (Ferrous Sulfate [Slow Fe] 142 MG) PO SCH (10:00)
[2019-04-02] MEDS ORDERED: AMLODIPINE BESYLATE 10 MG TABLET PO SCH (10:00)
[2019-04-02] MEDS ORDERED: METOPROLOL SUCCINATE 25 MG TAB.SR.24H PO SCH (10:00)
[2019-04-02] MEDS ORDERED: (PENDING PHARMACY ID) (Potassium Chloride [Potassium Chloride] 40 MEQ) PO SCH (10:00)
[2019-04-02] MEDS ORDERED: POTASSIUM CHLORIDE 10 MEQ TABLET.ER PO SCH (10:00)
[2019-04-02 10:38] VITALS: BP 129/69
--- NOTE | 2019-04-02 17:08 | PDOC DISCHARGE SUMMARY ---
Impression - Admit/DC Date/PCP Admission Date/Primary Care Provider: 03/31/19 02:24 JAMES MANRIQUEZ MD Discharge Date: 04/02/19 - Discharge Diagnosis (1) Acute CVA (cerebrovascular accident) Is this a current diagnosis for this admission?: Yes (2) Amaurosis fugax of right eye Is this a current diagnosis for this admission?: Yes (3) HTN (hypertension) Is this a current diagnosis for this admission?: Yes - Assessment Summary: Patient will be admitted to the [facility] where she will receive routine supportive and symptomatic cares via the stroke protocol. Consultations with the stroke nurse, PT, OT, speech therapy, psychotherapist social worker and the registered dietitian will be obtained. Patient will be started on initial therapy is appropriate utilizing Plavix and aspirin. An MRI of the brain and an MRA of the neck will be obtained as per recommendation of neurology at [facility]. Patient will be placed on a cardiac diet. She will be continued on her usual medications for her chronic medical problems as appropriate. Routine labs will be obtained per the stroke protocol. Smoking cessation is advised and counseled briefly at the bedside. A nicotine replacement patch is available for the patient's use, if desired. - Additional Information Resuscitation Status: Full Code Discharge Activity: Activity As Tolerated, Balance Activity w/Rest Referrals: JAMES MANRIQUEZ MD [Primary Care Provider] - 04/15/19 2:30 pm Prescriptions: Clopidogrel Bisulfate [Plavix 75 mg Tablet] 75 mg PO DAILY #30 tablet Home Medications: Raloxifene HCl [Evista 60 mg Tablet] 60 mg PO DAILY 07/10/16 Amlodipine Besylate [Norvasc 10 mg Tablet] 10 mg PO DAILY 03/31/19 Aspirin [Aspir-Low] 81 mg PO DAILY 03/31/19 Atorvastatin Calcium [Lipitor 40 mg Tablet] 40 mg PO QHS 03/31/19 Ferrous Sulfate [Slow Fe] 142 mg PO DAILY 03/31/19 Megestrol Acetate [Megace 20 mg Tablet] 20 mg PO Q2D 03/31/19 Metoprolol Succinate [Toprol Xl 25 mg Tab.sr] 25 mg PO DAILY 03/31/19 Pnv,Calcium 72/Iron,Carb/Folic [ Plus Iron Tablet] 1 each PO BID 03/31/19 Potassium Chloride 40 meq PO DAILY 03/31/19 Sacubitril/Valsartan [Entresto 24 mg/26 mg Tablet] 1 tab PO BID 03/31/19 Clopidogrel Bisulfate [Plavix 75 mg Tablet] 75 mg PO DAILY #30 tablet 04/02/19 History of Present Illiness History of Present Illness: Admitting hospitalist's H&P: VALERIO AUSTIN is a 74 year old female who presented to the emergency room with an acute headache. She admits that her frontal headache came on in the morning and intensified over the course of the day as a pounding sensation behind her eyes. The headache was accompanied by bilateral blurry vision with the right side worse than left side and a 30-minute period of complete blindness in the right eye "like a curtain was drawn over my eye", with the headache reaching its greatest intensity at this time (4 out of 5). The headache then rapidly resolved and her visual symptoms also reached near complete resolution with the exception of minimal blurriness in the right eye. The headache was also accompanied by mild vertigo and nausea which resolved with the headache. She denies other associated or accompanying signs and symptoms. The patient denies prior similar episodes. The patient has not identified any aggravating or ameliorating factors for her headache. In the emergency room she was found to have a normal CT of the head but on a CTA of the neck there was a questionable aneurysm which will need to be further delineated with an MRI and MRA per neurology at [facility]. Patient was subsequently admitted to the stroke protocol for further evaluation treatment. Hospital Course Hospital Course: This is a 74-year-old female who initially presented with blurry vision and right blindness. MRI brain came back positive for acute/subacute CVA involving the lateral right occipital lobe. She was continued on aspirin. Lab Plavix was also added to her regimen. She was continued on statin. She did have improvement on her vision but did not completely return to her baseline vision. Discussed risk and benefits of being on dual antiplatelet and she verbalized understanding and prefers to be on both. She will closely follow-up with her PCP in a week. She is also on Entresto patient was prescribed by her out-of-town fly finisher for her CHF. She is also taking irbesartan on top of Entresto. Will discontinue irbesartan. She will continue taking her Entresto and will closely follow-up with her fly finisher as well. Physical Exam Vital Signs: Temp Pulse Resp BP Pulse Ox 98.3 F 71 16 129/69 H 98 04/02/19 10:35 04/02/19 10:35 04/02/19 10:35 04/02/19 10:35 04/02/19 10:35 Intake & Output 04/01/19 04/02/19 04/03/19 06:59 06:59 06:59 Intake Total 520 660 360 Output Total 800 300 Balance -280 360 360 Weight 116 lb 13.52 oz 116 lb 2.938 oz General appearance: PRESENT: no acute distress, well-developed, well-nourished Head exam: PRESENT: atraumatic, normocephalic Eye exam: PRESENT: conjunctiva pink, EOMI, PERRLA. ABSENT: scleral icterus Ear exam: PRESENT: normal external ear exam Mouth exam: PRESENT: moist, tongue midline Neck exam: ABSENT: carotid bruit, JVD, lymphadenopathy, thyromegaly Respiratory exam: PRESENT: clear to auscultation tiago. ABSENT: rales, rhonchi, wheezes Cardiovascular exam: PRESENT: RRR. ABSENT: diastolic murmur, rubs, systolic murmur Pulses: PRESENT: normal dorsalis pedis pul GI/Abdominal exam: PRESENT: normal bowel sounds, soft. ABSENT: distended, guarding, mass, organolmegaly, rebound, tenderness Rectal exam: PRESENT: deferred Neurological exam: PRESENT: alert, awake, oriented to person, oriented to place, oriented to time. ABSENT: motor sensory deficit Results Laboratory Results: WBC 6.6 10^3/uL (4.0-10.5) 04/01/19 04:55 RBC 3.58 10^6/uL (3.72-5.28) L 04/01/19 04:55 Hgb 10.7 g/dL (12.0-15.5) L 04/01/19 04:55 Hct 31.9 % (36.0-47.0) L 04/01/19 04:55 MCV 89 fl (80-97) 04/01/19 04:55 MCH 30.1 pg (27.0-33.4) 04/01/19 04:55 MCHC 33.7 g/dL (32.0-36.0) 04/01/19 04:55 RDW 17.2 % (11.5-14.0) H 04/01/19 04:55 Plt Count 249 10^3/uL (150-450) 04/01/19 04:55 Lymph % (Auto) 19.4 % (13-45) 03/30/19 17:10 [place] % (Auto) 9.4 % (3-13) 03/30/19 17:10 Eos % (Auto) 1.2 % (0-6) 03/30/19 17:10 Baso % (Auto) 0.3 % (0-2) 03/30/19 17:10 Absolute Neuts (auto) 4.7 10^3/uL (1.7-8.2) 03/30/19 17:10 Absolute Lymphs (auto) 1.3 10^3/uL (0.5-4.7) 03/30/19 17:10 Absolute Monos (auto) 0.6 10^3/uL (0.1-1.4) 03/30/19 17:10 Absolute Eos (auto) 0.1 10^3/uL (0.0-0.6) 03/30/19 17:10 Absolute Basos (auto) 0.0 10^3/uL (0.0-0.2) 03/30/19 17:10 Seg Neutrophils % 69.7 % (42-78) 03/30/19 17:10 ESR 32 mm/hr (0-30) H 03/30/19 17:10 PT 13.5 SEC (11.4-15.4) 03/30/19 17:10 INR 1.03 03/30/19 17:10 APTT 26.1 SEC (23.5-35.8) 03/30/19 17:10 Sodium 141.5 mmol/L (137-145) 04/01/19 04:55 Potassium 3.7 mmol/L (3.6-5.0) 04/01/19 04:55 Chloride 105 mmol/L (98-107) 04/01/19 04:55 Carbon Dioxide 29 mmol/L (22-30) 04/01/19 04:55 Anion Gap 8 (5-19) 04/01/19 04:55 BUN 6 mg/dL (7-20) L 04/01/19 04:55 Creatinine 0.53 mg/dL (0.52-1.25) 04/01/19 04:55 Est GFR ( Amer) > 60 (>60) 04/01/19 04:55 Est GFR (Non-Af Amer) Cancelled 03/30/19 17:53 Est GFR (MDRD) Non-Af > 60 (>60) 04/01/19 04:55 Glucose 80 mg/dL (75-110) 04/01/19 04:55 POC Glucose 93 mg/dL (70-110) 03/31/19 02:11 Calcium 8.9 mg/dL (8.4-10.2) 04/01/19 04:55 Total Bilirubin 0.5 mg/dL (0.2-1.3) 04/01/19 04:55 Direct Bilirubin 0.1 mg/dL (0.0-0.4) 04/01/19 04:55 Neonat Total Bilirubin Not Reportable 04/01/19 04:55 Neonat Direct Bilirubin Not Reportable 04/01/19 04:55 Neonat Indirect Bili Not Reportable 04/01/19 04:55 AST 61 U/L (14-36) H 04/01/19 04:55 ALT 43 U/L (<35) 04/01/19 04:55 Alkaline Phosphatase 61 U/L (38-126) 04/01/19 04:55 Creatine Kinase 1261 U/L (30-135) H 03/30/19 19:25 CK-MB (CK-2) 1.22 ng/mL (<4.55) 03/30/19 19:25 Troponin I < 0.012 ng/mL 03/30/19 19:25 Total Protein 5.7 g/dL (6.3-8.2) L 04/01/19 04:55 Albumin 3.0 g/dL (3.5-5.0) L 04/01/19 04:55 Triglycerides 66 mg/dL (<150) 04/01/19 04:55 Cholesterol 89.75 mg/dL (0-200) 04/01/19 04:55 LDL Cholesterol Direct 54 mg/dL (<100) 04/01/19 04:55 VLDL Cholesterol 13.0 mg/dL (10-31) 04/01/19 04:55 HDL Cholesterol 25 mg/dL (>40) L 04/01/19 04:55 EGFR Cancelled 03/30/19 17:53 Urine Color YELLOW 03/30/19 20:05 Urine Appearance SLIGHTLY-CLOUDY 03/30/19 20:05 Urine pH 6.0 (5.0-9.0) 03/30/19 20:05 Ur Specific Winger 1.011 03/30/19 20:05 Urine Protein NEGATIVE mg/dL (NEGATIVE) 03/30/19 20:05 Urine Glucose (UA) NEGATIVE mg/dL (NEGATIVE) 03/30/19 20:05 Urine Ketones NEGATIVE mg/dL (NEGATIVE) 03/30/19 20:05 Urine Blood NEGATIVE (NEGATIVE) 03/30/19 20:05 Urine Nitrite NEGATIVE (NEGATIVE) 03/30/19 20:05 Urine Bilirubin NEGATIVE (NEGATIVE) 03/30/19 20:05 Urine Urobilinogen NEGATIVE mg/dL (<2.0) 03/30/19 20:05 Ur Leukocyte Esterase NEGATIVE (NEGATIVE) 03/30/19 20:05 Urine WBC (Auto) 2 /HPF 03/30/19 20:05 Urine RBC (Auto) 0 /HPF 03/30/19 20:05 U Hyaline Cast (Auto) 4 /LPF 03/30/19 20:05 Urine Bacteria (Auto) 3+ /HPF 03/30/19 20:05 Squamous Epi Cells Auto 1 /HPF 03/30/19 20:05 Urine Mucus (Auto) RARE /LPF 03/30/19 20:05 Urine Ascorbic Acid 40 (NEGATIVE) H 03/30/19 20:05 03/30/19 03/30/19 03/30/19 17:10 17:53 19:25 CK-MB (CK-2) Cancelled Cancelled 1.22 Troponin I Cancelled Cancelled < 0.012 Impressions: Chest X-Ray 03/30/19 16:46 IMPRESSION: NO ACUTE FINDINGS. Head CT 03/30/19 16:46 IMPRESSION: No acute intracranial findings. 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 Postsurgical changes of left scleral buckling. Left vitreous hemorrhage. EVIDENCE OF ACUTE STROKE: NO. Head CTA 03/30/19 19:22 IMPRESSION: Possible tiny aneurysm of the left A1 segment. Confirmation is recommended if surgery is contemplated as this could be artifact. Stenoses as above. Neck CTA 03/30/19 19:22 IMPRESSION: Possible tiny aneurysm of the left A1 segment. Confirmation is recommended if surgery is contemplated as this could be artifact. Stenoses as above. Head MRI 03/31/19 00:00 IMPRESSION: Positive for acute or sub-acute infarction any 3 cm area in the lateral right occipital lobe. EVIDENCE OF ACUTE STROKE: YES. RIGHT FEATHER STITCHER. Neck MRA 03/31/19 00:00 IMPRESSION: No significant stenosis identified given motion artifact. Stroke Is this a Stroke Patient?: Yes Acute Heart Failure - Is this a Heart Failure Patient?: Yes Documentation of LVEF assessment?: Yes LVEF < 40%?: Yes-if yes answer questions a through e a) Discharged on ACEI?: N/A Discharged on ARNI b) Discharges on ARB?: N/A-Discharged on ARNI c) Discharged on ARNI?: Yes d) Discharged on evidence-based Beta lucian(carvedilol, sustained release metoprolol succinate, or bisoprolol)?: Yes e) For LVEF <35%, discharged on Aldosterone antagonist?: No-document contraincations
== END 2019-04-02 11:16 | disposition home or self-care (01) | DRG 65 ==
LOC: ER 16:40 → EH 03-31 02:24 → 3W 03-31 03:39
PROVIDERS: ADMIT Emergency Medicine; ATTEND Emergency Medicine
DX: I63.9 Cerebral infarction, unspecified (principal); G45.3 Amaurosis fugax; I11.0 Hypertensive heart disease with heart failure; I50.9 Heart failure, unspecified; E78.5 Hyperlipidemia, unspecified; I25.10 Atherosclerotic heart disease of native coronary artery without angina pectoris; K21.9 Gastro-esophageal reflux disease without esophagitis; M19.90 Unspecified osteoarthritis, unspecified site; F10.20 Alcohol dependence, uncomplicated; F41.1 Generalized anxiety disorder; F17.200 Nicotine dependence, unspecified, uncomplicated; Z96.649 Presence of unspecified artificial hip joint; F12.90 Cannabis use, unspecified, uncomplicated; I25.2 Old myocardial infarction; Z79.02 Long term (current) use of antithrombotics/antiplatelets; Z79.82 Long term (current) use of aspirin; Z71.6 Tobacco abuse counseling; Z82.49 Family history of ischemic heart disease and other diseases of the circulatory system
CPT/HCPCS: 36415; 70450; 70496; 70498; 70547; 70551; 71045; 80053; 80061; 81001; 82550; 82553; 82962; 84484; 85025; 85027; 85610; 85652; 85730; 93005; 93010; 96361; 96374; 99291; J1644; J3010; J3490; J7030; J7040

== ENCOUNTER 2019-05-13 11:36 | Emergency (ER) | payer MEDICARE ==
--- NOTE | 2019-05-13 12:59 | ER Document Report ---
ED Medical Screen (RME) - General Chief Complaint: Constipation Stated Complaint: CONSTIPATION Time Seen by Provider: 05/13/19 12:52 Primary Care Provider: JAMES MANRIQUEZ MD [Primary Care Provider] - Follow up as needed Mode of Arrival: Wheelchair Information source: Patient, Relative Notes: 74-year-old female with history of stroke presents today with complaints of episodes of diarrhea and constipation and then diarrhea than constipation since April. Her reports that she will be having diarrhea he will feed her cheese and oatmeal Pepto and then she will be constipated and then it will start up again. Patient complains of abdominal pain with palpation. Denies fever vomiting. reports he contacted her provider and was told to come to the emergency department. reports that she was in the process of getting ready to have a cardiac cath when she had a stroke. He denies chest pain or OR reports that they were just looking. I have greeted and performed a rapid initial assessment of this patient. A comprehensive ED assessment and evaluation of the patient, analysis of test results and completion of the medical decision making process will be conducted by additional ED providers. TRAVEL OUTSIDE OF THE [place] IN LAST 30 DAYS: No - Related Data Allergies/Adverse Reactions: No Known Allergies Allergy (Verified 05/13/19 12:50) Home Medications: cva Past Medical History - Past Medical History Cardiac Medical History: Reports: Hx Coronary Artery Disease, Hx Heart Attack, Hx Hypercholesterolemia, Hx Hypertension Denies: Hx Congestive Heart Failure, Hx DVT, Hx Pulmonary Embolism Pulmonary Medical History: Reports: Hx Pneumonia Denies: Hx Asthma, Hx Bronchitis, Hx COPD Neurological Medical History: Denies: Hx Cerebrovascular Accident, Hx Seizures Endocrine Medical History: Denies: Hx Diabetes Mellitus Type 1, Hx Diabetes Mellitus Type 2, Hx Hyperthyroidism, Hx Hypothyroidism Renal/ Medical History: Reports: Hx Peritoneal Dialysis GI Medical History: Reports: Hx Gastroesophageal Reflux Disease. Denies: Hx Cirrhosis, Hx Crohn's Disease, Hx Hepatitis, Hx Hiatal Hernia, Hx Ulcer, Hx Ulcerative Colitis Musculoskeltal Medical History: Reports Hx Arthritis - Osteoarthritis in multiple joints, Denies Hx Gout Skin Medical History: Denies Hx Eczema, Denies Hx Psoriasis Psychiatric Medical History: Reports: Hx Dementia - Mild early dementia noted per over the last 6 months Denies: Hx Depression Infectious Medical History: Denies: Hx Hepatitis Past Surgical History: Reports: Hx Orthopedic Surgery - rthr, Other - Surgery for detached retina. Denies: Hx Hysterectomy, Hx Mastectomy, Hx Open Heart Surgery, Hx Pacemaker - Immunizations Hx Diphtheria, Pertussis, Tetanus Vaccination: Yes Physical Exam - Vital signs Vitals: Temp Pulse Resp BP Pulse Ox 97.5 F 58 L 14 101/60 100 05/13/19 12:31 05/13/19 12:31 05/13/19 12:31 05/13/19 12:31 05/13/19 12:31 Course - Vital Signs Vital signs: Temp Pulse Resp BP Pulse Ox 97.5 F 58 L 14 101/60 100 05/13/19 12:31 05/13/19 12:31 05/13/19 12:31 05/13/19 12:31 05/13/19 12:31 Doctor's Discharge - Discharge Referrals: JAMES MANRIQUEZ MD [Primary Care Provider] - Follow up as needed
--- NOTE | 2019-05-13 13:31 | RADIOLOGY REPORT (SQ) ---
EXAM DESCRIPTION: KUB/ABDOMEN (SINGLE VIEW) COMPLETED DATE/TIME: 05/13/2019 1:21 pm REASON FOR STUDY: abd pain hx diarrhea/constipation COMPARISON: None. NUMBER OF VIEWS: One view. TECHNIQUE: Supine radiographic image of the abdomen acquired. LIMITATIONS: None. FINDINGS: BOWEL GAS PATTERN: Normal bowel gas pattern. No dilated loops. CONSTIPATION: Marked CALCIFICATIONS: No suspicious calcifications. SOFT TISSUES: No gross mass or suggestion of organomegaly. HARDWARE: None in the abdomen. BONES: No acute fracture. Partially visualized total right hip arthroplasty. OTHER: Atherosclerotic changes involving the abdominal aorta and pelvic vasculature. IMPRESSION: NO RADIOGRAPHIC EVIDENCE FOR ACUTE ABDOMINAL DISEASE. Marked constipation. TECHNICAL DOCUMENTATION: JOB ID: [id number] 2011 [employer]- All Rights Reserved Reading location - IP/workstation name: [email or web address]
[2019-05-13] MEDS ORDERED: BISACODYL 10 MG SUPP.RECT PR ONE (13:49)
[2019-05-13 13:54] LABS: ABSOLUTE MONOCYTES (AUTO) 0.7 10^3/uL (0.1-1.4); ABSOLUTE NEUT (AUTO) 4.9 10^3/uL (1.7-8.2); BASOPHILS % (AUTO) 0.5 % (0-2); EOSINOPHILS % (AUTO) 0.6 % (0-6); HEMATOCRIT 31.4 % (36.0-47.0); HEMOGLOBIN 10.6 g/dL (12.0-15.5); LYMPHOCYTES % (AUTO) 15.1 % (13-45); MEAN CORPUSCULAR HEMOGLOBIN 30.2 pg (27.0-33.4); MEAN CORPUSCULAR HGB CONC 33.7 g/dL (32.0-36.0); MEAN CORPUSCULAR VOLUME 90 fl (80-97); MONOCYTES % (AUTO) 11.1 % (3-13); PLATELET COUNT 299 10^3/uL (150-450); RED BLOOD COUNT 3.51 10^6/uL (3.72-5.28); RED CELL DISTRIBUTION WIDTH 17.8 % (11.5-14.0); SEGMENTED NEUTROPHILS % (AUTO) 72.7 % (42-78); TOTAL CELLS COUNTED % (AUTO) 100 %; WHITE BLOOD COUNT 6.8 10^3/uL (4.0-10.5)
--- NOTE | 2019-05-13 13:54 | ER Document Report ---
ED General - General Chief Complaint: Constipation Stated Complaint: CONSTIPATION Time Seen by Provider: 05/13/19 12:52 Primary Care Provider: JAMES MANRIQUEZ MD [Primary Care Provider] - Follow up as needed Mode of Arrival: Wheelchair TRAVEL OUTSIDE OF THE [place] IN LAST 30 DAYS: No - HPI Patient complains to provider of: constipation Onset: Last week Quality of pain: Achy Severity: Mild Pain Level: 2 Context: Delightful 74 year old female arrives with complaints of no good bowel movement in 6 days. Her normal is every other day. No fever or chills. Crampy pain near here rectum and lower abd. No nausea or vomiting. PCP is Dr. Morfin. Lives at home with . Comorbidities are htn, hld and cvd. Exacerbated by: Denies Relieved by: Denies - Related Data Allergies/Adverse Reactions: No Known Allergies Allergy (Verified 05/13/19 12:50) Home Medications: cva Past Medical History - General Information source: Patient, Relative - Social History Smoking Status: Unknown if Ever Smoked Family History: CAD, Hypertension Patient has suicidal ideation: No Patient has homicidal ideation: No - Past Medical History Cardiac Medical History: Reports: Hx Coronary Artery Disease, Hx Heart Attack, Hx Hypercholesterolemia, Hx Hypertension Denies: Hx Congestive Heart Failure, Hx DVT, Hx Pulmonary Embolism Pulmonary Medical History: Reports: Hx Pneumonia Denies: Hx Asthma, Hx Bronchitis, Hx COPD Neurological Medical History: Denies: Hx Cerebrovascular Accident, Hx Seizures Endocrine Medical History: Denies: Hx Diabetes Mellitus Type 1, Hx Diabetes Mellitus Type 2, Hx Hyperthyroidism, Hx Hypothyroidism Renal/ Medical History: Reports: Hx Peritoneal Dialysis GI Medical History: Reports: Hx Gastroesophageal Reflux Disease. Denies: Hx Cirrhosis, Hx Crohn's Disease, Hx Hepatitis, Hx Hiatal Hernia, Hx Ulcer, Hx Ulcerative Colitis Musculoskeletal Medical History: Reports Hx Arthritis - Osteoarthritis in multiple joints, Denies Hx Gout Skin Medical History: Denies Hx Eczema, Denies Hx Psoriasis Psychiatric Medical History: Reports: Hx Dementia - Mild early dementia noted per over the last 6 months Denies: Hx Depression Infectious Medical History: Denies: Hx Hepatitis Past Surgical History: Reports: Hx Orthopedic Surgery - rthr, Other - Surgery for detached retina. Denies: Hx Hysterectomy, Hx Mastectomy, Hx Open Heart Surgery, Hx Pacemaker - Immunizations Hx Diphtheria, Pertussis, Tetanus Vaccination: Yes Hx Pneumococcal Vaccination: 04/02/15 Review of Systems - Review of Systems Constitutional: No symptoms reported EENT: No symptoms reported Cardiovascular: No symptoms reported Respiratory: No symptoms reported Gastrointestinal: No symptoms reported Genitourinary: No symptoms reported Female Genitourinary: No symptoms reported Musculoskeletal: No symptoms reported Skin: No symptoms reported Hematologic/Lymphatic: No symptoms reported Neurological/Psychological: No symptoms reported Physical Exam - Vital signs Vitals: Temp Pulse Resp BP Pulse Ox 97.5 F 58 L 14 101/60 100 05/13/19 12:31 05/13/19 12:31 05/13/19 12:31 05/13/19 12:31 05/13/19 12:31 Interpretation: Normal - General General appearance: Appears well, Alert - HEENT Head: Normocephalic, Atraumatic Eyes: Normal Pupils: PERRL - Respiratory Respiratory status: No respiratory distress Chest status: Nontender Breath sounds: Normal Chest palpation: Normal - Cardiovascular Rhythm: Regular Heart sounds: Normal auscultation Murmur: No - Abdominal Inspection: Normal Distension: No distension Bowel sounds: Normal Tenderness: Tender - mild lower abd pain in midline without rebound or rigidity. Organomegaly: No organomegaly - Back Back: Normal, Nontender - Extremities General upper extremity: Normal inspection, Nontender, Normal color, Normal ROM, Normal temperature General lower extremity: Normal inspection, Nontender, Normal color, Normal ROM, Normal temperature, Normal weight bearing. No: Joceline's sign - Neurological Neuro grossly intact: Yes Cognition: Normal Orientation: AAOx4 Oak Coma Scale Eye Opening: Spontaneous Oak Coma Scale Verbal: Oriented Oak Coma Scale Motor: Obeys Commands Kriss Coma Scale Total: 15 Speech: Normal Motor strength normal: LUE, RUE, LLE, RLE Sensory: Normal - Psychological Associated symptoms: Normal affect, Normal mood - Skin Skin Temperature: Warm Skin Moisture: Dry Skin Color: Normal Course - Re-evaluation Re-evalutation: 05/13/19 17:04 MDM Elderly female with htn, cvd and dementia - rather mild. Lives with at home. Some results here with constipation treatment with dulcolx and more with enema. Abd soft and nontender aftewards and importantly she tells me she feels better afterward. - Vital Signs Vital signs: Temp Pulse Resp BP Pulse Ox 97.5 F 58 L 14 101/60 100 05/13/19 12:31 05/13/19 12:31 05/13/19 12:31 05/13/19 12:31 05/13/19 12:31 - Laboratory Result Diagrams: 05/13/19 13:32 05/13/19 13:32 Laboratory results interpreted by me: 05/13/19 05/13/19 13:32 13:32 RBC 3.51 L Hgb 10.6 L Hct 31.4 L RDW 17.8 H BUN 22 H AST 167 H - Diagnostic Test Radiology reviewed: Reports reviewed Discharge - Discharge Clinical Impression: Constipation Qualifiers: Constipation type: unspecified constipation type Qualified Code(s): K59.00 - Constipation, unspecified Condition: Good Disposition: HOME, SELF-CARE Instructions: Constipation ([facility]) Additional Instructions: Take medicine as directed. See your doctor in follow up. Call that office tomorrow. Please return here for any problems or any concerns, including but not limited to abdominal pain, fever or other problems or concerns. Referrals: JAMES MANRIQUEZ MD [Primary Care Provider] - Follow up as needed
[2019-05-13 14:17] LABS: ALBUMIN 3.6 g/dL (3.5-5.0); ALKALINE PHOSPHATASE 73 U/L (38-126); ANION GAP 10 (5-19); ASPARTATE AMINO TRANSFERASE 167 U/L (14-36); BILIRUBIN,DIRECT 0.3 mg/dL (0.0-0.4); BILIRUBIN,TOTAL 0.5 mg/dL (0.2-1.3); BLOOD UREA NITROGEN 22 mg/dL (7-20); CALCIUM 9.2 mg/dL (8.4-10.2); CARBON DIOXIDE 23 mmol/L (22-30); CHLORIDE 107 mmol/L (98-107); GLUCOSE 92 mg/dL (75-110); POTASSIUM 4.8 mmol/L (3.6-5.0); TOTAL PROTEIN 6.9 g/dL (6.3-8.2)
[2019-05-13 18:08] VITALS: BP 78/50
== END 2019-05-13 18:17 | disposition home or self-care (01) ==
LOC: ER 11:36
DX: K59.00 Constipation, unspecified (principal); I10 Essential (primary) hypertension; F03.90 Unspecified dementia, unspecified severity, without behavioral disturbance, psychotic disturbance, mood disturbance, and anxiety; I25.10 Atherosclerotic heart disease of native coronary artery without angina pectoris; Z79.899 Other long term (current) drug therapy
CPT/HCPCS: 36415; 85025; 80053; 74018; A9270; 99283